=== PATIENT | male | born 1960 | race Caucasian/White ===

== ENCOUNTER 2017-08-16 13:31 | Inpatient (IN) | payer MEDICAID, OTHER ==
[~2017-08-16] VITALS: Ht 180.3 cm; Wt 100.0 kg
[2017-08-16] MEDS ORDERED: cefTRIAXone 1GM/10ml IVPUSH 10 ML IV ONE (13:45)
[2017-08-16 14:07] LABS: Basophils # (auto) 0.1 uL; Basophils % (auto) 0.4 % (0.0-2.0); Eosinophils # (auto) 0.2 uL; Eosinophils % (auto) 1.6 % (0.0-7.0); Hematocrit 37.2 % (41.0-53.0); Hemoglobin 12.6 g/dL (13.5-17.5); Lymphocytes % (auto) 8.1 % (10.0-50.0); Mean Corpuscular Hemoglobin 32.2 pg (28.0-32.0); Mean Corpuscular Hgb Conc. 33.9 g/dL (32.0-36.0); Mean Corpuscular Volume 95.1 fL (80.0-100.0); Monocytes # (auto) 1.1 uL; Monocytes % (auto) 8.6 % (0.0-12.0); Neutrophils % (auto) 81.3 % (37.0-80.0); Platelet Count (auto) 183 10^3/uL (140-450); Red Blood Cells 3.92 10^6/uL (4.5-5.90); Red Cell Distribution Width 14.6 % (11.8-14.3); White Blood Cell 12.3 10^3/uL (4.4-10.8)
[2017-08-16 14:33] LABS: INR 0.95 (0.9-1.15); Partial Thromboplastin Time 33.3 sec (23.78-33.04); Prothrombin Time 10.2 sec (9.27-12.13)
[2017-08-16 14:34] LABS: Alanine Aminotransferase 27 U/L (16-61); Albumin 2.8 g/dL (3.4-5.0); Alkaline Phosphatase 74 U/L (45-117); Anion Gap 7 (5-15); Aspartate Aminotransferase 21 U/L (15-37); BUN/Creatinine Ratio 15.5; Bilirubin, Total 0.5 mg/dL (0.2-1.0); Blood Urea Nitrogen 25 mg/dL (7-18); Calcium 7.4 mg/dL (8.5-10.1); Carbon Dioxide 32 mmol/L (21-32); Chloride 94 mmol/L (98-107); GFR African American 57 mL/min; GFR Non-African American 47 mL/min; Glucose 139 mg/dL (74-106); Potassium 3.3 mmol/L (3.5-5.1); Sodium 133 mmol/L (136-145); Total Protein 7.1 g/dL (6.4-8.2)
[2017-08-16] MEDS ORDERED: ONDANSETRON HCL 4 MG/2 ML VIAL IV PRN (15:15)
[2017-08-16] MEDS ORDERED: DEXTROSE (50%) 50ML SYRG IV PRN (15:15)
[2017-08-16] MEDS ORDERED: AZITHROMYCIN 500MG/ 250ML 250 ML IV ONE (15:15)
[2017-08-16] MEDS ORDERED: OXYCODONE W/ ACETAMINOPHEN 5/325MG TABLET PO PRN (15:15)
[2017-08-16] MEDS ORDERED: TIZANIDINE 4 MG PO PRN (15:15)
[2017-08-16 16:58] VITALS: BP 127/73
[2017-08-16] MEDS: InsuLIN REG 1unit/0.01ml Soln (100units/ml) SC SCH ×2 (17:00→22:00)
[2017-08-16] MEDS: ALBUTEROL SULF 2.5 MG/0.5ML(0.5%) NEB SOLN NEB SCH (18:25)
[2017-08-16] MEDS: BUDESONIDE (INHALATION) 0.5 MG/2 ML NEB NEB SCH (18:25)
[2017-08-16] MEDS: IPRATROPIUM BROM 0.5 MG/2.5ML INH SOL NEB SCH (18:25)
[2017-08-16] MEDS ORDERED: FUROSEMIDE 40 MG/4 ML VIAL ONE (18:45)
[2017-08-16] MEDS: ACCU-CHEK COMFORT CURVE STRIP VI SCH ×2 (19:00→22:00)
[2017-08-16] MEDS ORDERED: methylPREDNISolone SOD SUCC 125 MG/2 ML VL IV ONE ×2 (19:45→20:00)
[2017-08-16] MEDS: SOD CHL 0.9%/ KCL 20MEQ 1,000 ML IV SCH (20:19)
[2017-08-16 21:00] VITALS: BP 135/73
[2017-08-16] MEDS: GABAPENTIN 400 MG CAP PO SCH (22:00)
[2017-08-16] MEDS: MONTELUKAST SODIUM 10 MG TAB PO SCH (22:00)
[2017-08-16] MEDS: traZODone HCL 50 MG TAB PO SCH (22:00)
[2017-08-16] MEDS: methylPREDNISolone SOD SUCC 40 MG/ML VL IV SCH (22:00)
[2017-08-17] VITALS (8 sets, daily range): BP systolic 115–142; BP diastolic 68–90
[2017-08-17] MEDS: GABAPENTIN 400 MG CAP PO SCH ×3 (05:56→21:59)
[2017-08-17 06:04] LABS: Basophils # (auto) 0 uL; Basophils % (auto) 0.2 % (0.0-2.0); Eosinophils # (auto) 0.1 uL; Eosinophils % (auto) 1.2 % (0.0-7.0); Hematocrit 38.5 % (41.0-53.0); Hemoglobin 13.2 g/dL (13.5-17.5); Lymphocytes # (auto) 0.4 uL; Lymphocytes % (auto) 3.4 % (10.0-50.0); Mean Corpuscular Hemoglobin 32.8 pg (28.0-32.0); Mean Corpuscular Hgb Conc. 34.4 g/dL (32.0-36.0); Mean Corpuscular Volume 95.4 fL (80.0-100.0); Monocytes # (auto) 0.2 uL; Monocytes % (auto) 1.5 % (0.0-12.0); Neutrophils # (auto) 10.3 uL; Neutrophils % (auto) 93.7 % (37.0-80.0); Nucleated Red Blood Cells % 0.1 %; Platelet Count (auto) 185 10^3/uL (140-450); Red Blood Cells 4.03 10^6/uL (4.5-5.90); Red Cell Distribution Width 14.7 % (11.8-14.3)
[2017-08-17 06:12] LABS: BUN/Creatinine Ratio 23.6
[2017-08-17] MEDS: InsuLIN REG 1unit/0.01ml Soln (100units/ml) SC SCH ×4 (06:21→22:00)
[2017-08-17] MEDS: ACCU-CHEK COMFORT CURVE STRIP VI SCH ×4 (06:22→21:53)
[2017-08-17] MEDS: IPRATROPIUM BROM 0.5 MG/2.5ML INH SOL NEB SCH ×4 (06:30→18:34)
[2017-08-17] MEDS: ALBUTEROL SULF 2.5 MG/0.5ML(0.5%) NEB SOLN NEB SCH ×4 (06:30→18:34)
[2017-08-17] MEDS: cefTRIAXone 1GM/10ml IVPUSH 10 ML IV SCH ×2 (09:26→11:50)
[2017-08-17] MEDS: methylPREDNISolone SOD SUCC 40 MG/ML VL IV SCH ×3 (09:26→21:58)
[2017-08-17] MEDS: SOD CHL 0.9%/ KCL 20MEQ 1,000 ML IV SCH ×2 (09:26→11:54)
[2017-08-17] MEDS: AZITHROMYCIN 500MG/ 250ML 250 ML IV SCH ×2 (09:26→11:50)
[2017-08-17] MEDS: BUDESONIDE (INHALATION) 0.5 MG/2 ML NEB NEB SCH ×2 (10:16→18:34)
[2017-08-17] MEDS ORDERED: guaiFENesin 200 MG/10 ML UD PO PRN (11:00)
[2017-08-17] MEDS ORDERED: VANCOMYCIN PER PHARMACY 0 MG IV SCH (11:00)
[2017-08-17] MEDS: VANCOMYCIN 1,250 MG in D5W 5% 250 ML IV SCH (13:50)
[2017-08-17] MEDS: traZODone HCL 50 MG TAB PO SCH (21:58)
[2017-08-17] MEDS: MONTELUKAST SODIUM 10 MG TAB PO SCH (21:59)
[2017-08-17] MEDS ORDERED: VANCOMYCIN 1,250 MG in D5W 5% 250 ML IV SCH (23:00)
[2017-08-18 00:15] VITALS: BP 106/65
[2017-08-18] MEDS: VANCOMYCIN 1,250 MG in D5W 5% 250 ML IV SCH ×2 (01:28→13:00)
[2017-08-18] MEDS: ALBUTEROL SULF 2.5 MG/0.5ML(0.5%) NEB SOLN NEB SCH ×2 (05:44→10:00)
[2017-08-18] MEDS: BUDESONIDE (INHALATION) 0.5 MG/2 ML NEB NEB SCH (05:44)
[2017-08-18] MEDS: IPRATROPIUM BROM 0.5 MG/2.5ML INH SOL NEB SCH ×2 (05:44→10:00)
[2017-08-18] MEDS: GABAPENTIN 400 MG CAP PO SCH ×2 (06:56→14:00)
[2017-08-18] MEDS: InsuLIN REG 1unit/0.01ml Soln (100units/ml) SC SCH ×2 (06:57→11:29)
[2017-08-18] MEDS: ACCU-CHEK COMFORT CURVE STRIP VI SCH ×2 (06:57→11:29)
[2017-08-18] MEDS: SOD CHL 0.9%/ KCL 20MEQ 1,000 ML IV SCH (07:00)
[2017-08-18 08:00] VITALS: BP 101/60
[2017-08-18] MEDS: cefTRIAXone 1GM/10ml IVPUSH 10 ML IV SCH (08:56)
[2017-08-18] MEDS: methylPREDNISolone SOD SUCC 40 MG/ML VL IV SCH (09:39)
[2017-08-18] MEDS: AZITHROMYCIN 500MG/ 250ML 250 ML IV SCH (09:40)
== END 2017-08-18 15:30 | disposition left against medical advice (07) | DRG 720 ==
LOC: EDBD 13:31 → ER 13:39 → TELE 13:40 → WEST WING 16:49 → DOU IN ICU 20:34
PROVIDERS: ADMIT Internal Medicine; ATTEND Internal Medicine
PROC: 5A09357 Assistance with Respiratory Ventilation, Less than 24 Consecutive Hours, Continuous Positive Airway Pressure (ICD-10-PCS; principal; 2017-08-16)
DX: A41.9 Sepsis, unspecified organism (principal); J96.20 Acute and chronic respiratory failure, unspecified whether with hypoxia or hypercapnia; N17.0 Acute kidney failure with tubular necrosis; I50.43 Acute on chronic combined systolic (congestive) and diastolic (congestive) heart failure; J18.1 Lobar pneumonia, unspecified organism; I11.0 Hypertensive heart disease with heart failure; E11.42 Type 2 diabetes mellitus with diabetic polyneuropathy; E86.0 Dehydration; E11.65 Type 2 diabetes mellitus with hyperglycemia; J44.1 Chronic obstructive pulmonary disease with (acute) exacerbation; E87.1 Hypo-osmolality and hyponatremia; J44.0 Chronic obstructive pulmonary disease with (acute) lower respiratory infection; E66.9 Obesity, unspecified; G89.29 Other chronic pain; Z87.891 Personal history of nicotine dependence
CPT/HCPCS: 36415; 36600; 71046; 71250; 80048; 80053; 80202; 82805; 82962; 83036; 83605; 83880; 84484; 85025; 85610; 85730; 87040; 87070; 87081; 87205; 93306; 94640; 94660; 96374; J1815; J7060

== ENCOUNTER 2019-01-25 16:25 | Inpatient (IN) | payer MEDICAID, MEDICARE ==
[~2019-01-25] VITALS: Ht 175.3 cm; Wt 101.0 kg
[2019-01-25] MEDS ORDERED: SODIUM CHLORIDE 0.9% 1,000 ML IVB ONE (16:44)
[2019-01-25] MEDS ORDERED: LORazepam 2MG/ML-1ML VIAL IV ONE ×3 (16:45→17:30)
[2019-01-25] MEDS ORDERED: ACETAMINOPHEN 650 MG RECT SUPP PR ONE (16:45)
[2019-01-25] MEDS ORDERED: LEVOFLOXACIN 500 MG/100 ML PREMIX BAG IV ONE (16:45)
[2019-01-25] MEDS ORDERED: SODIUM CHLORIDE 0.9% 2,700 ML IV ONE (17:00)
[2019-01-25 17:28] LABS: Eosinophils # (auto) 0 uL; Monocytes # (auto) 0.9 uL; Neutrophils # (auto) 5.9 uL
[2019-01-25 17:29] LABS: Basophils # (auto) 0.1 uL; Basophils % (auto) 1.9 % (0.0-2.0); Eosinophils % (auto) 0.6 % (0.0-7.0); Hematocrit 43.8 % (41.0-53.0); Hemoglobin 15.4 g/dL (13.5-17.5); Lymphocytes # (auto) 0.7 uL; Lymphocytes % (auto) 9.4 % (10.0-50.0); Mean Corpuscular Hemoglobin 36.6 pg (28.0-32.0); Mean Corpuscular Hgb Conc. 35.1 g/dL (32.0-36.0); Mean Corpuscular Volume 104.5 fL (80.0-100.0); Monocytes % (auto) 11.6 % (0.0-12.0); Neutrophils % (auto) 76.5 % (37.0-80.0); Nucleated Red Blood Cells % 1.2 %; Platelet Count (auto) 82 10^3/uL (140-450); Red Blood Cells 4.19 10^6/uL (4.5-5.90); Red Cell Distribution Width 19.8 % (11.8-14.3); Urine Amorphous Crystal FEW /hpf (None Seen); Urine Bacteria MOD /hpf (None Seen); Urine Blood Negative /uL (Negative); Urine Mucus FEW (None Seen); Urine Specific Gravity 1.015 (1.001-1.035); Urine WBC 23 /hpf (0 - 3); White Blood Cell 7.6 10^3/uL (4.4-10.8)
[2019-01-25] MEDS ORDERED: diphenhdrAMINE HCL 50 MG/1 ML VL IM ONE (17:30)
[2019-01-25] MEDS ORDERED: HALOPERIDOL LACTATE 5 MG/ML INJ VIAL IM ONE (17:30)
[2019-01-25 17:45] LABS: Amphetamine Screen, Urine NEGATIVE (NEGATIVE); Barbiturate Scree,Urine NEGATIVE (NEGATIVE); Benzodiazephine Screen, Urine NEGATIVE (NEGATIVE); Cannabinoid Screen, Urine NEGATIVE (NEGATIVE); Cocaine Screen, Urine NEGATIVE (NEGATIVE); Opiate Scree,Urine NEGATIVE (NEGATIVE); Phencyclidine Screen, Urine NEGATIVE (NEGATIVE)
[2019-01-25 17:47] LABS: Lactic Acid w/Reflex 2.6 mmol/L (0.4-2.0)
[2019-01-25 18:05] LABS: Alanine Aminotransferase 31 U/L (16-61); Albumin 2.6 g/dL (3.4-5.0); Anion Gap 14 (5-15); Aspartate Aminotransferase 83 U/L (15-37); BUN/Creatinine Ratio 5.1; Blood Alcohol < 3.0 mg/dL (0-5); Blood Urea Nitrogen 4 mg/dL (7-18); Carbon Dioxide 32 mmol/L (21-32); Chloride 88 mmol/L (98-107); GFR African American 130 mL/min; GFR Non-African American 107 mL/min; Glucose 85 mg/dL (74-106); Sodium 134 mmol/L (136-145)
[2019-01-25 18:10] LABS: Alkaline Phosphatase 78 U/L (45-117); Bilirubin, Total 1.8 mg/dL (0.2-1.0)
[2019-01-25 18:16] LABS: Calcium 5.4 mg/dL (8.5-10.1); Magnesium 0.4 mg/dL (1.6-2.6)
[2019-01-25] MEDS ORDERED: POTASSIUM CHL 20MEQ/100ML 100 ML IV ONE (18:30)
[2019-01-25] MEDS: PROPOFOL 100 ML IV SCH (18:43)
--- NOTE | 2019-01-25 18:44 | NUR ---
Respiratory note: ASSIST DR LARES WITH INTUBATION AT THIS TIME. PT INTUBATED FOR AIRWAY PROTECTION AND HYPOXIA. PT SUCCESSFULLY INTUBATED ON FIRST 1ST ATTEMPT WITH SIZE 8.0 ETT SECURED WITH YUDELKA AT 23CM AT THE LIP. PT PREOXYGENATED WITH 100% FIO2 VIA BAGMASK. BILATERAL BS NOTED, GOOD COLOR CHANGE ON EZCAP NOTED.
[2019-01-25] MEDS ORDERED: PROPOFOL 100 ML IV ONE (18:45)
[2019-01-25] MEDS ORDERED: SUCCINYLCHOLINE CHLORIDE 20 MG/ML 10ML VIAL IV ONE ×2 (18:56→19:00)
[2019-01-25] MEDS ORDERED: ETOMIDATE (2MG/ML) 20ML VIAL IV ONE (19:00)
[2019-01-25] MEDS: MIDAZOLAM DRIP 50 mg/50mL 50 ML IV SCH (19:10)
[2019-01-25] MEDS ORDERED: MIDAZOLAM DRIP 50 mg/50mL 50 ML IV ONE ×2 (19:11→19:12)
[2019-01-25] MEDS ORDERED: PROMETHAZINE W/CODEINE 5 ML ORAL SYRUP PO PRN (19:15)
[2019-01-25] MEDS ORDERED: PROMETHAZINE W/CODEINE 5 ML ORAL SYRUP PO ONE (19:15)
[2019-01-25] MEDS ORDERED: LORazepam 2MG/ML-1ML VIAL IV PRN (19:30)
[2019-01-25] MEDS ORDERED: NITROGLYCERIN 0.4 MG SL TAB SL PRN (19:30)
[2019-01-25] MEDS ORDERED: THIAMINE 100mg/ml INJ (200mg/2ml VIAL) IV ONE (19:30)
[2019-01-25] MEDS ORDERED: PROMETHAZINE HCL 25 MG/ML 1ML IV PRN (19:30)
[2019-01-25] MEDS ORDERED: MORPHINE SULF INJ 2 MG/ML SYRINGE 1ML IV PRN (19:30)
[2019-01-25] MEDS ORDERED: VANCOMYCIN 1GM/250ML 250 ML IV ONE (19:30)
[2019-01-25] MEDS ORDERED: ALBUTEROL SULF 2.5 MG/0.5ML(0.5%) NEB SOLN NEB PRN (19:30)
[2019-01-25] MEDS ORDERED: VANCOMYCIN PER PHARMACY 0 MG IV SCH (19:30)
[2019-01-25] MEDS ORDERED: PIPERACILLIN-TAZOB 3.375GM 100 ML IV ONE (19:30)
[2019-01-25] MEDS ORDERED: CALCIUM CHL 100MG/ML 1,000 MG in D5W 5% 100 ML IV ONE (19:45)
[2019-01-25 20:06] VITALS: BP 95/61
[2019-01-25 20:11] VITALS: BP 105/62
[2019-01-25] MEDS: SODIUM CHLORIDE 0.9% 1,000 ML IV SCH (20:45)
[2019-01-25] MEDS: FOLIC ACID 1 MG, MULTIPLE VITAMIN 10 ML, MAGNESIUM SULF SDV 50% 8 MEQ, THIAMINE INJ 100... INJ SCH ×5 (21:20)
[2019-01-25] MEDS: MAGNESIUM SULFATE 1GM/100ML 100 ML IV SCH ×2 (21:24→22:35)
[2019-01-25] MEDS: FLUCONAZOLE 200MG/100ML 100 ML IV SCH ×2 (21:35→22:35)
[2019-01-25 22:07] VITALS: BP 100/63
--- NOTE | 2019-01-25 22:35 | NUR ---
Respiratory note: ADVANCED ETT 2CM TO 25CM AT THE LIP
[2019-01-26] VITALS (11 sets, daily range): BP systolic 87–110; BP diastolic 52–74
[2019-01-26] MEDS: ALBUTEROL SULF 2.5 MG/0.5ML(0.5%) NEB SOLN NEB SCH ×4 (00:18→18:00)
[2019-01-26] MEDS: IPRATROPIUM BROM 0.5 MG/2.5ML INH SOL NEB SCH ×4 (00:18→18:00)
[2019-01-26] MEDS: PIPERACILLIN-TAZOB 3.375GM 100 ML IV SCH ×3 (00:25→13:34)
[2019-01-26] MEDS: NOREPINEPHRINE 8 MG/250ML KIT 250 ML IV SCH (02:00)
[2019-01-26] MEDS ORDERED: NOREPINEPHRINE 8 MG/250ML KIT 250 ML IV ONE (02:33)
[2019-01-26] MEDS: SODIUM CHLORIDE 0.9% 1,000 ML IV SCH ×3 (04:04→20:18)
[2019-01-26] MEDS: VANCOMYCIN 1GM/250ML 250 ML IV SCH ×3 (05:30→21:28)
[2019-01-26 06:31] LABS: Basophils # (auto) 0.1 uL; Eosinophils # (auto) 0.2 uL; Lymphocytes # (auto) 1.1 uL; Mean Corpuscular Hgb Conc. 34.7 g/dL (32.0-36.0); Monocytes # (auto) 0.5 uL; Nucleated Red Blood Cells % 1.1 %
[2019-01-26 06:33] LABS: Basophils % (auto) 0.8 % (0.0-2.0); Eosinophils % (auto) 2.8 % (0.0-7.0); Hematocrit 39.6 % (41.0-53.0); Hemoglobin 13.7 g/dL (13.5-17.5); Lymphocytes % (auto) 14.4 % (10.0-50.0); Mean Corpuscular Hemoglobin 36.7 pg (28.0-32.0); Mean Corpuscular Volume 105.7 fL (80.0-100.0); Monocytes % (auto) 7.2 % (0.0-12.0); Neutrophils # (auto) 5.5 uL; Neutrophils % (auto) 74.8 % (37.0-80.0); Platelet Count (auto) 83 10^3/uL (140-450); Red Blood Cells 3.74 10^6/uL (4.5-5.90); Red Cell Distribution Width 19.9 % (11.8-14.3); White Blood Cell 7.4 10^3/uL (4.4-10.8)
[2019-01-26 06:39] LABS: Albumin 2.2 g/dL (3.4-5.0)
[2019-01-26 06:44] LABS: Bilirubin, Total 2.3 mg/dL (0.2-1.0)
[2019-01-26] MEDS ORDERED: CALCIUM CHL 100MG/ML 500 MG in D5W 5% 100 ML IV ONE (07:00)
[2019-01-26 07:05] LABS: Calcium 5.4 mg/dL (8.5-10.1); Potassium 2.3 mmol/L (3.5-5.1)
[2019-01-26] MEDS ORDERED: AZITHROMYCIN 500MG/ 250ML 250 ML IV SCH (08:00)
[2019-01-26] MEDS: POTASSIUM CHL 20MEQ/100ML 100 ML IV SCH ×3 (08:53→22:45)
[2019-01-26] MEDS: MAGNESIUM SULFATE 1GM/100ML 100 ML IV SCH ×3 (09:08→11:06)
[2019-01-26] MEDS: FAMOTIDINE (10MG/ML) 2ML VL IV SCH (10:45)
[2019-01-26] MEDS: ENOXAPARIN SOD 40 MG/0.4 ML SYRINGE SC SCH (10:46)
--- NOTE | 2019-01-26 11:15 | NUR ---
WOUND CARE NOTE: PATIENT ADMITTED TO [facility] WITH DIAGNOSIS OF ACUTE RESPIRATORY FAILURE. CURRENT TERRI SCORE IS 10. PATIENT IS INTUBATED, SEDATED IN THE ER. ORDERED SPECIALTY AIR BED AT THIS TIME PREVENTATIVE. PATIENT TO BE PLACED, PENDING DELIVERY BY CONCHITA COLON. ADDED SKIN/WOUND CARE PLAN AT THIS TIME. PATIENT IS WOUND FREE, PER BEDSIDE NURSE. RECOMMEND: FREQUENT TURN SCHEDULE Q 2 HOURS, PRN CONDITION PERMITS, WITH PRESSURE REDISTRIBUTION USING PILLOWS/WEDGES, SPECIALTY AIR MATTRESS, BID/PRN APPLICATION WITH MOISTURE BARRIER CREAM, OPTIFOAM GENTLE SACRAL DRESSING PREVENTATIVE, SKIN/WOUND CARE PLAN, DIETARY CONSULT FOR LOW TERRI, CONTINUED MONITORING BY WOUND CARE TEAM.
[2019-01-26] MEDS: THIAMINE 100mg/ml INJ (200mg/2ml VIAL) IV SCH (11:27)
[2019-01-26] MEDS ORDERED: POTASSIUM EFFERVESENT TAB 25 MEQ GT ONE (11:45)
[2019-01-26] MEDS ORDERED: FUROSEMIDE 40 MG/4 ML VIAL IV ONE (11:45)
[2019-01-26] MEDS ORDERED: cefTRIAXone 1GM/50ML D5W 50 ML IV SCH (12:06)
[2019-01-26] MEDS: FLUCONAZOLE 200MG/100ML 100 ML IV SCH ×2 (12:25→12:42)
[2019-01-26 16:39] LABS: Albumin 2.3 g/dL (3.4-5.0); Potassium 3.1 mmol/L (3.5-5.1)
[2019-01-26 16:42] LABS: BUN/Creatinine Ratio 3.2; Bilirubin, Total 1.8 mg/dL (0.2-1.0); Total Protein 5.4 g/dL (6.4-8.2)
[2019-01-26 16:46] LABS: Calcium 5.7 mg/dL (8.5-10.1)
[2019-01-26] MEDS ORDERED: CALCIUM CHL 100MG/ML 1,000 MG in D5W 5% 100 ML IV ONE (17:00)
[2019-01-26] MEDS ORDERED: MULTIPLE VITAMINS W/ MINERALS TAB PO ONE (17:00)
[2019-01-26] MEDS: PROPOFOL 100 ML IV SCH (19:06)
[2019-01-26] MEDS: MIDAZOLAM DRIP 50 mg/50mL 50 ML IV SCH (20:02)
[2019-01-26] MEDS: FOLIC ACID 1 MG, MULTIPLE VITAMIN 10 ML, MAGNESIUM SULF SDV 50% 8 MEQ, THIAMINE INJ 100... INJ SCH ×5 (21:03)
[2019-01-27] VITALS (62 sets, daily range): BP systolic 83–143; BP diastolic 52–94
[2019-01-27] MEDS ORDERED: THIAMINE 100mg/ml INJ (200mg/2ml VIAL) IV ONE
[2019-01-27] MEDS ORDERED: SODIUM BICARBONATE 8.4 % INJ 50ML VIAL IV ONE
[2019-01-27] MEDS ORDERED: SODIUM BICARBONATE 50ML VIAL 50 ML in SOD CHL 0.45% 1,000 ML IV ONE (00:45)
[2019-01-27] MEDS: POTASSIUM CHL 20MEQ/100ML 100 ML IV SCH ×3 (01:05→10:52)
[2019-01-27] MEDS: PIPERACILLIN-TAZO 4.5GM 100 ML IV SCH ×2 (01:05→07:36)
[2019-01-27] MEDS: NOREPINEPHRINE 8 MG/250ML KIT 250 ML IV SCH ×2 (02:59→10:54)
[2019-01-27] MEDS: SODIUM CHLORIDE 0.9% 1,000 ML IV SCH (03:30)
[2019-01-27] MEDS: VANCOMYCIN 1GM/250ML 250 ML IV SCH ×2 (05:03→12:57)
[2019-01-27 05:25] LABS: Basophils # (auto) 0.2 uL; Eosinophils # (auto) 0.2 uL; Hemoglobin 14.6 g/dL (13.5-17.5); Lymphocytes # (auto) 0.8 uL; Monocytes # (auto) 0.5 uL; Neutrophils # (auto) 7.1 uL; Nucleated Red Blood Cells % 0.3 %; Platelet Count (auto) 90 10^3/uL (140-450)
[2019-01-27 05:29] LABS: Basophils % (auto) 2.4 % (0.0-2.0); Eosinophils % (auto) 2.4 % (0.0-7.0); Hematocrit 42.6 % (41.0-53.0); Mean Corpuscular Hemoglobin 36.3 pg (28.0-32.0); Mean Corpuscular Hgb Conc. 34.3 g/dL (32.0-36.0); Mean Corpuscular Volume 105.8 fL (80.0-100.0); Neutrophils % (auto) 80.2 % (37.0-80.0); Red Blood Cells 4.02 10^6/uL (4.5-5.90); Red Cell Distribution Width 19.3 % (11.8-14.3); White Blood Cell 8.8 10^3/uL (4.4-10.8)
[2019-01-27 05:50] LABS: Calcium 6.6 mg/dL (8.5-10.1)
[2019-01-27 05:55] LABS: Magnesium 0.7 mg/dL (1.6-2.6)
[2019-01-27 05:56] LABS: Potassium 2.7 mmol/L (3.5-5.1)
[2019-01-27 05:58] LABS: Bilirubin, Total 1.9 mg/dL (0.2-1.0); Phosphorus 2.2 mg/dL (2.5-4.90)
[2019-01-27] MEDS ORDERED: MAGNESIUM SULFATE 1GM/100ML 100 ML IV ONE ×2 (06:00→06:30)
[2019-01-27] MEDS: ALBUTEROL SULF 2.5 MG/0.5ML(0.5%) NEB SOLN NEB SCH ×4 (06:27→18:04)
[2019-01-27] MEDS: IPRATROPIUM BROM 0.5 MG/2.5ML INH SOL NEB SCH ×4 (06:27→18:04)
[2019-01-27] MEDS ORDERED: CALCIUM GLUC 4.65meq/50ml D5AE 50 ML IV ONE (06:30)
[2019-01-27] MEDS: PROPOFOL 100 ML IV SCH ×2 (07:34→22:14)
[2019-01-27] MEDS ORDERED: VANCOMYCIN PER PHARMACY 0 MG IV SCH (08:00)
--- NOTE | 2019-01-27 08:40 | NUR ---
PATIENT ACCEPTED BY CHARGE NURSE MAURA. VSS/ SEE IV SPREADSHEET.
[2019-01-27] MEDS: ENOXAPARIN SOD 40 MG/0.4 ML SYRINGE SC SCH (10:00)
[2019-01-27] MEDS ORDERED: MAGNESIUM OXIDE 400 MG TAB PO SCH (10:00)
[2019-01-27] MEDS: FUROSEMIDE 20 MG/2 ML VIAL IV SCH (10:00)
[2019-01-27] MEDS: THIAMINE 100mg/ml INJ (200mg/2ml VIAL) IV SCH (10:52)
[2019-01-27] MEDS: FAMOTIDINE (10MG/ML) 2ML VL IV SCH (10:52)
[2019-01-27] MEDS: FLUCONAZOLE 200MG/100ML 100 ML IV SCH ×2 (10:52→12:58)
[2019-01-27] MEDS: MIDAZOLAM DRIP 50 mg/50mL 50 ML IV SCH ×2 (10:53→17:56)
--- NOTE | 2019-01-27 12:00 | NUR ---
Family updated on pt status Family of HENRY SLAUGHTER updated on patient's status and condition. All questions and concerns addressed. Sister Katty verbalized understanding.
--- NOTE | 2019-01-27 12:12 | NUR ---
EEG PENDING \TECH ATTEMPTED TO COMPLETE EEG, LARGE AMOUNT OF ARTIFACT NOTED ON MONITOR. TECH TO TRY AGAIN IN A.M. NO TREMORS OR DISTRESS NOTED TO PATIENT THAT CAN BE CAUSE. ALL LINES AND MONITORS ALLOWED WERE DISCONNECTED TO CAUSE ANY INTERFERENCE.
--- NOTE | 2019-01-27 12:14 | NUR ---
Nutrition Consult/assessment Notes: please see attached link for complete assessment Est. Needs BW 90 [id number] kcal (23-25 kcal/kgBW), 90-108 gms pro (1.0-1.2 gms/kgBW r/t severe hypoalb). Will continue to monitor pertinent labs and reassess nutrient need prn Rec: EN support with Jevity @ 60 ml/hr per MD approval Addendum: 01/27/19 at [address] Amended: Links added.
--- NOTE | 2019-01-27 12:22 | NUR ---
CARDIOLOGY AT BESIDE MD AWARE OF ELECTROLYTE IMBALANCE WITH REPLACEMENT ORDERED. SEE MD NOTES/ ORDERS.
[2019-01-27 14:08] LABS: INR 1.14 (0.9-1.15)
[2019-01-27 14:47] LABS: BUN/Creatinine Ratio 4.3; Calcium 6.5 mg/dL (8.5-10.1); Potassium 3.1 mmol/L (3.5-5.1)
--- NOTE | 2019-01-27 14:53 | NUR ---
HOSPITALIST DR. OLSON AT BEDSIDE. MD UPDATED ON PATIENTS STATUS. SEE NEW ORDERS.
[2019-01-27] MEDS ORDERED: DEXTROSE (50%) 50ML SYRG IV PRN (15:00)
[2019-01-27] MEDS ORDERED: cefTRIAXone 1GM/50ML D5W 50 ML IV ONE (15:00)
[2019-01-27] MEDS: MAGNESIUM SULFATE 1GM/100ML 100 ML IV SCH ×3 (16:15→17:56)
[2019-01-27] MEDS ORDERED: SODIUM PHOSPHATES 24 MEQ in SODIUM CHL 0.9% 100 ML IV ONE (16:15)
[2019-01-27] MEDS ORDERED: POTASSIUM CHLORIDE 80 MEQ, LIDOCAINE 1% (LOCAL ANESTH.) 6 ML in SODIUM CHL 0.9% 500 ML IV ONE (16:15)
--- NOTE | 2019-01-27 16:37 | NUR ---
RUBBER GOODS ASSEMBLER AT BEDSIDE DR. BIRD UPDATED ON PATIENTS STATUS. SEE MD ORDERS/ NOTES.
[2019-01-27] MEDS: ACCU-CHEK COMFORT CURVE STRIP VI SCH (17:55)
[2019-01-27] MEDS: InsuLIN REG 1unit/0.01ml Soln (100units/ml) SC SCH (17:56)
--- NOTE | 2019-01-27 18:21 | NUR ---
MED REC. FAMILY UNABLE TO OBTAIN MEDICATIONS. BOTTLES FOUND AROUND PATIENTS BELONGINGS APPROX 7 YEARS OLD. UNABLE TO OBTAIN LIST.
--- NOTE | 2019-01-27 19:30 | NUR ---
OPEN SHIFT RECEIVED REPORT ON FULL CODE ICU PATIENT FROM DAY SHIFT RN. PATIENT INTUBATED AND SEDATED ON PROPOFOL AND VERSED, TOLERATING VENTILATOR. NSR 70'S SBP 100'SS ON 10 . MATTA PATENT DRAINING TO GRAVITY. OGT CLAMPED, VERIFIED PLACEMENT. RECTAL PROBE IN PLACE 99.5'F. RIGHT SUBCLAVIAN TLC CLEAN DRY AND INTACT. 22G TO RIGHT UPPER ARM PATENT. 18G TO LEFT HAND, PATENT. FOR MORE INFORMATIONS SEE INTERVENTIONS. ALL FALL AND SAFETY PRECAUTIONS IN PLACE. SPECIALTY BED LOCKED AND IN LOWEST POSITION
[2019-01-27] MEDS: FOLIC ACID 1 MG, MULTIPLE VITAMIN 10 ML, MAGNESIUM SULF SDV 50% 8 MEQ, THIAMINE INJ 100... INJ SCH ×5 (21:00)
[2019-01-28] VITALS (76 sets, daily range): BP systolic 77–156; BP diastolic 50–99
--- NOTE | 2019-01-28 | NUR ---
Complete Bed Bath Given Chg bed bath given. Full linens changed. Skin reassessed and no new break down noted. VSS.
[2019-01-28] MEDS: ACCU-CHEK COMFORT CURVE STRIP VI SCH ×4 (00:05→17:28)
[2019-01-28] MEDS: IPRATROPIUM BROM 0.5 MG/2.5ML INH SOL NEB SCH ×4 (00:08→18:30)
[2019-01-28] MEDS: ALBUTEROL SULF 2.5 MG/0.5ML(0.5%) NEB SOLN NEB SCH ×4 (00:08→18:30)
[2019-01-28] MEDS: MIDAZOLAM DRIP 50 mg/50mL 50 ML IV SCH ×2 (01:26→22:52)
[2019-01-28 04:31] LABS: Basophils # (auto) 0.2 uL; Eosinophils # (auto) 0.2 uL; Lymphocytes # (auto) 0.9 uL; Monocytes # (auto) 0.6 uL
[2019-01-28 04:36] LABS: Hematocrit 42.5 % (41.0-53.0); Hemoglobin 14.6 g/dL (13.5-17.5); Lymphocytes % (auto) 10.1 % (10.0-50.0); Mean Corpuscular Hemoglobin 36.2 pg (28.0-32.0); Mean Corpuscular Hgb Conc. 34.3 g/dL (32.0-36.0); Mean Corpuscular Volume 105.6 fL (80.0-100.0); Neutrophils # (auto) 6.7 uL; Neutrophils % (auto) 78.9 % (37.0-80.0); Nucleated Red Blood Cells % 0.2 %; Platelet Count (auto) 90 10^3/uL (140-450); Red Blood Cells 4.02 10^6/uL (4.5-5.90); White Blood Cell 8.5 10^3/uL (4.4-10.8)
[2019-01-28 04:38] LABS: Red Cell Distribution Width 20.1 % (11.8-14.3)
[2019-01-28 05:14] LABS: BUN/Creatinine Ratio 6.7; Calcium 6.5 mg/dL (8.5-10.1); Magnesium 1.2 mg/dL (1.6-2.6); Potassium 3.6 mmol/L (3.5-5.1)
[2019-01-28 05:18] LABS: Albumin 1.9 g/dL (3.4-5.0); Bilirubin, Direct 0.8 mg/dL (0-0.2); Bilirubin, Total 1.4 mg/dL (0.2-1.0); Phosphorus 3.5 mg/dL (2.5-4.90); Total Protein 5.1 g/dL (6.4-8.2)
[2019-01-28] MEDS: InsuLIN REG 1unit/0.01ml Soln (100units/ml) SC SCH ×4 (06:00→17:28)
--- NOTE | 2019-01-28 07:17 | NUR ---
End of Shift Gave report to day shift RN. VSS. all fall and safety precautions in place.
--- NOTE | 2019-01-28 09:00 | NUR ---
MD AT BEDSIDE DR. OLSON UPDATED ON PATIENTS STATUS. SEE MD ORDERS/ NOTES.
--- NOTE | 2019-01-28 09:24 | NUR ---
MORTGAGE LOAN OFFICER ORIGINATOR AT BEDSIDE.
--- NOTE | 2019-01-28 09:42 | NUR ---
FISHING FLOATS ASSEMBLER DR. SOTO AT BEDSIDE. PER MD POSSIBLE LHC ON 01/29 OR 01/30 DEPENDING ON PATIENTS NEURO STATUS AND CONDITION. CONSENT TO BE OBTAINED BY FAMILY.
--- NOTE | 2019-01-28 09:45 | NUR ---
PATIENT RESPONSIVE TO DEEP PAIN, SEDATION TO BE TITRATED DOWN ONCE EEG COMPLETED TO PREVENT ANY INTERFERENCE IN TEST. Addendum: 01/28/19 at 0947 by Shira Gonzalez RN Amended: Links added.
--- NOTE | 2019-01-28 09:50 | NUR ---
EEG COMPLETED AT BEDSIDE. GERA CERDA.
[2019-01-28] MEDS: ENOXAPARIN SOD 40 MG/0.4 ML SYRINGE SC SCH (10:00)
--- NOTE | 2019-01-28 10:40 | NUR ---
LIVESTOCK NUTRITIONIST AT BEDSIDE.
--- NOTE | 2019-01-28 10:57 | NUR ---
[facility] CALLED RECOMMENDING FOR FLUCONAZOLE TO BE DISCONTINUED CULTURES ARE NOT SHOWING INDICATION AT THIS TIME. PAGED, OK TO STOP MEDICATION AT THIS TIME.
[2019-01-28] MEDS: POTASSIUM CHL 20MEQ/100ML 100 ML IV SCH ×2 (11:36→13:52)
[2019-01-28] MEDS: cefTRIAXone 1GM/50ML D5W 50 ML IV SCH (11:36)
[2019-01-28] MEDS: NOREPINEPHRINE 8 MG/250ML KIT 250 ML IV SCH (11:37)
[2019-01-28] MEDS: FAMOTIDINE (10MG/ML) 2ML VL IV SCH (11:37)
[2019-01-28] MEDS: MAGNESIUM SULFATE 1GM/100ML 100 ML IV SCH ×3 (11:38→13:52)
[2019-01-28] MEDS: THIAMINE 100mg/ml INJ (200mg/2ml VIAL) IV SCH (11:38)
[2019-01-28] MEDS: FUROSEMIDE 20 MG/2 ML VIAL IV SCH (11:38)
[2019-01-28] MEDS: PROPOFOL 100 ML IV SCH (12:05)
--- NOTE | 2019-01-28 14:46 | NUR ---
FOOD SERVICE SALES REPRESENTATIVES AT BEDSIDE DR. BIRD UPDATED ON PATIENTS STATUS. SEE NEW ORDERS/NOTES.
--- NOTE | 2019-01-28 15:34 | NUR ---
PATIENTS BP 78/ 52 WITHOUT SIGNIFICANT INCIDENCE. LEVO INCREASED PER PROTOCOL.
--- NOTE | 2019-01-28 15:35 | NUR ---
LOWER EXTREMITIES COLD TO TOUCH, PULSES PRESENT BUT WEAK TO TOUCH. PT HAS HX OF PERIPHERAL NEUROPATHY. WARM BLANKETS APPLIED TO BILATERAL LOWER EXTREMITIES. WILL CONTINUE TO MONITOR.
[2019-01-28] MEDS ORDERED: CYANOCOBALAMIN (B-12) 1000 MCG/1 ML VIAL IM ONE (15:45)
--- NOTE | 2019-01-28 16:00 | NUR ---
NEUROLOGIST AT BEDSIDE DR. REED UPDATED ON PATIENTS STATUS. PT CURRENTLY RESPONSIVE TO PAINFUL STIMULI. SEE IV SPREADSHEET. SEE MD ORDERS/ NOTES
--- NOTE | 2019-01-28 16:05 | NUR ---
Respiratory note: TITRATED FIO2 TO 30%
[2019-01-28 18:19] LABS: BUN/Creatinine Ratio 7.8; Calcium 6.9 mg/dL (8.5-10.1); Potassium 3.7 mmol/L (3.5-5.1)
[2019-01-28] MEDS ORDERED: CALCIUM CHL(10%) 100MG/ML 10ML VIAL IV ONE (18:19)
[2019-01-28] MEDS ORDERED: SODIUM BICARBONATE 8.4% INJ 50ML SYRINGE IV ONE (18:19)
[2019-01-28] MEDS ORDERED: EPINEPHrine HCL 1 MG/10 ML SYRG IV ONE (18:19)
--- NOTE | 2019-01-28 19:12 | NUR ---
REPORT GIVEN TO NOC NURSE UPDATED ON PLAN OF CARE. RN AWARE OF PENDING POSSIBLE LHC IN A.M.
--- NOTE | 2019-01-28 19:45 | NUR ---
OPEN SHIFT RECEIVED REPORT ON FULL CODE ICU PATIENT FROM DAY SHIFT RN. PATIENT INTUBATED AND SEDATED ON PROPOFOL AND VERSED, TOLERATING VENTILATOR. NSR 70'S SBP 120'SS ON 10 . MATTA PATENT DRAINING TO GRAVITY. OGT CLAMPED, VERIFIED PLACEMENT. RECTAL PROBE IN PLACE 99.0'F. RIGHT SUBCLAVIAN TLC CLEAN DRY AND INTACT. FOR MORE INFORMATIONS SEE INTERVENTIONS. ALL FALL AND SAFETY PRECAUTIONS IN PLACE. SPECIALTY BED LOCKED AND IN LOWEST POSITION.
[2019-01-28] MEDS: FOLIC ACID 1 MG, MULTIPLE VITAMIN 10 ML, MAGNESIUM SULF SDV 50% 8 MEQ, THIAMINE INJ 100... INJ SCH ×5 (21:00)
[2019-01-29] VITALS (100 sets, daily range): BP systolic 73–162; BP diastolic 41–100
[2019-01-29] MEDS: ACCU-CHEK COMFORT CURVE STRIP VI SCH ×4 (00:08→18:00)
[2019-01-29] MEDS: PROPOFOL 100 ML IV SCH ×2 (00:21→12:27)
[2019-01-29] MEDS: IPRATROPIUM BROM 0.5 MG/2.5ML INH SOL NEB SCH ×4 (00:34→17:54)
[2019-01-29] MEDS: ALBUTEROL SULF 2.5 MG/0.5ML(0.5%) NEB SOLN NEB SCH ×4 (00:34→17:54)
--- NOTE | 2019-01-29 01:11 | NUR ---
Complete Bed Bath Given Chg cleaning to Left radial and left groin for left PTCA in am. Soap and water bed bath given. Full linens changed. Skin reassessed and no new break down noted. VSS.
[2019-01-29 04:08] LABS: Basophils # (auto) 0.3 uL; Basophils % (auto) 3.7 % (0.0-2.0); Eosinophils # (auto) 0.2 uL; Eosinophils % (auto) 2.1 % (0.0-7.0); Hematocrit 44.7 % (41.0-53.0); Hemoglobin 15.6 g/dL (13.5-17.5); Lymphocytes # (auto) 0.9 uL; Lymphocytes % (auto) 11.2 % (10.0-50.0); Mean Corpuscular Hemoglobin 36.6 pg (28.0-32.0); Mean Corpuscular Volume 104.6 fL (80.0-100.0); Monocytes # (auto) 0.8 uL; Monocytes % (auto) 10.4 % (0.0-12.0); Neutrophils # (auto) 5.5 uL; Neutrophils % (auto) 72.6 % (37.0-80.0); Nucleated Red Blood Cells % 0.1 %; Platelet Count (auto) 113 10^3/uL (140-450); Red Blood Cells 4.28 10^6/uL (4.5-5.90); Red Cell Distribution Width 19.6 % (11.8-14.3); White Blood Cell 7.6 10^3/uL (4.4-10.8)
[2019-01-29 04:21] LABS: INR 1.04 (0.9-1.15); Partial Thromboplastin Time 31.6 sec (23.64-32.05)
[2019-01-29 04:28] LABS: Potassium 3.4 mmol/L (3.5-5.1)
[2019-01-29] MEDS: InsuLIN REG 1unit/0.01ml Soln (100units/ml) SC SCH ×4 (06:00→18:00)
--- NOTE | 2019-01-29 07:28 | NUR ---
End of Shift Gave report to day shift RN. VSS. all fall and safety precautions in place.
--- NOTE | 2019-01-29 08:45 | NUR ---
LEVOPHED GTT Levophed gtt decreased to 11mcg for a blood pressure of 141/91, will continue to titrate gtt as tolerated by patient.
[2019-01-29] MEDS: cefTRIAXone 1GM/50ML D5W 50 ML IV SCH (09:12)
[2019-01-29] MEDS: ENOXAPARIN SOD 40 MG/0.4 ML SYRINGE SC SCH (09:58)
[2019-01-29] MEDS: FUROSEMIDE 20 MG/2 ML VIAL IV SCH (09:59)
[2019-01-29] MEDS: FAMOTIDINE (10MG/ML) 2ML VL IV SCH (10:03)
[2019-01-29] MEDS: THIAMINE 100mg/ml INJ (200mg/2ml VIAL) IV SCH (10:03)
--- NOTE | 2019-01-29 10:30 | NUR ---
LEVOPHED GTT Levophed gtt decreased to 10mcg for a blood pressure of 151/98, will continue to titrate as tolerated by patient.
--- NOTE | 2019-01-29 10:34 | NUR ---
MD Dr. Hayes paged for a potassium of 3.4, awaiting for MD to call back.
--- NOTE | 2019-01-29 10:38 | NUR ---
MD Dr. Hayes called back and received new orders regarding potassium of 3.4, will carry out orders.
--- NOTE | 2019-01-29 10:45 | NUR ---
MD Dr. Radford at bedside updated on patient condition with no new orders received. Will continue to monitor patient closely.
[2019-01-29] MEDS: POTASSIUM CHL 20MEQ/100ML 100 ML IV SCH ×2 (11:03→13:00)
[2019-01-29] MEDS ORDERED: LIDOCAINE 2%HCL (LOCAL ANESTH.) INJ 20ML MDV ONE (11:20)
--- NOTE | 2019-01-29 11:30 | NUR ---
STEEL RULE DIE MAKER Patient was taken to rn lab by STEEL RULE DIE MAKERdirector of vocational guidance and another RN, Rachel BOSS. Patient connected to portable injection molding machine tender and oxygen. Awaiting for patient to arrive back to room 101.
--- NOTE | 2019-01-29 11:35 | NUR ---
Nutrition Follow-up Notes Wt.: 106.0 kg today. Pt's intubated, no immediate family member at bedside during rounds earlier. Pt's currently sedated with Propofol @ 5.443 ml/hr providing 144 kcal from Fat. Pt remains NPO, no order for alternate nutrition support yet at this time, per nursing. Noted pt's for active Wound, Pulmonary, Nephrology and Cardiology consults. Est. Needs BW 90 [id number] kcal (23-25 kcal/kgBW), 90-108 gms pro (1.0-1.2 gms/kgBW r/t severe hypoalb). Will continue to monitor pertinent labs and reassess nutrient need prn Labs: Gluc 122 H, K 3.4 L, BUN 5 L, Cr 0.50 L, Ca 7.0 L; Tpro 5.1 Alb 1.9 L. Skin: Raul scale 12, high risk, pt's right knee abrasion per supervisor dials. GI: Pt's no bowel activity since 01/25/19 per supervisor dials. PES: Increased nutrient needs r/t acute/chronic medical condition aeb intubated sedated with order of NPO Altered nutrition related lab values r/t current/chronic medical condition aeb hyperglycemia, severe hypoalb, hypocalcemia Obesity r/t food intake more than body requirement aeb 146% IBW, BMI 34.5 kg/m2 and increased body adiposity Will continue to monitor NPO status, skin status, pertinent labs and weight trend. F/u in 2 to 3 days. Rec.: 1.) If still NPO in next 36 hrs, consider EN support with formula choice of Glucerna 1.2 Ha @ 70 ml/hr goal rate as tolerated if medically appropriate. 2.) If Albumin continues trending down, consider Prostat 1 pkt BID. 3.) Consider daily MVI with minerals and Asc acid 500 mgs BID prn. 4.) Refer pt to RD for further nutrition education and weight monitoring upon discharge. 5.) Continue current plan of care.
[2019-01-29] MEDS ORDERED: ANGIOMAX 250 MG VIAL IV ONE (11:47)
[2019-01-29] MEDS ORDERED: SODIUM CHL 0.9% 0 ML ONE (11:47)
--- NOTE | 2019-01-29 12:05 | NUR ---
REPORT Report received from Avel BOSS in medical laboratory technical officer, awaiting for patient to arrive into room 101.
--- NOTE | 2019-01-29 12:17 | NUR ---
ARRIVAL Patient arrived back to room 101 from rags laborer accompanied by Avel BOSS and RT Browne. Patient tolerated procedure well. Right groin soft, non tender with no hematoma observed. Dressing dry clean and intact. Pulses palpable on upper and lower extremities. Will continue to monitor patient closely.
--- NOTE | 2019-01-29 12:17 | NUR ---
RT Transport Note: 1135: Patient transported to cardiac catheterization technician with OR team. Transported to procedure on registered nurse cardiac telemetry with alarms set and audible, ambu-bag/mask connected to O2 tank. In cardiac catheterization technician, placed on vent on previously ordered settings for procedure. 1217: Patient returned to room with no adverse reaction noted. Placed back on ventilator on previously ordered settings. Transport completed without incident.
[2019-01-29] MEDS: MIDAZOLAM DRIP 50 mg/50mL 50 ML IV SCH (12:28)
--- NOTE | 2019-01-29 14:05 | NUR ---
MD Dr. Hayes at bedside updated on patient condition with no new orders received. Will continue to monitor patient closely.
--- NOTE | 2019-01-29 14:35 | NUR ---
MD Dr. Radford called on cell phone [phone] with no responds will attempt again.
--- NOTE | 2019-01-29 14:36 | NUR ---
Assessment and SS consult Pt is a 58 yr old intubated male. SW called pt's sister, Waleska, who was a maintenance person listed for him. SS conslt given because pt is alcoholic and lives in a motor home or in a tent on sister's property and it is not suitable living conditions. In phone conversation, Pt's sister stated that prior to admit, pt was living with her in her home for 3 yrs and was "barely functioning". Pt could walk a little, wore the same clothes for a month and would get drink alcohol "24/" daily. Pt has anger issues and is very combative, especially whenever family members address his drinking issues or needing to move out. Pt owns a w/c and leg braces that he uses occasionally. Pt's sister stated that the pt has never received tx or even been open to the idea of tx for substance abuse or mental health. Pt has been "looking" for new housing for 3 yrs with out any success. Waleska stated that pt gets almost $2000 income monthly. SW stated that they could provide the pt with board and care/ room and board information along with mental health/ substance abuse tx, once the patient is alert and oriented again, and pt would have to decide to utilize the resources. Pt's sister made it very clear that the pt can no longer live in her home anymore after getting out of the hospital. Waleska stated that her sister, Katty, is the patients POA and can be reached by cell at [phone] or at her house at [phone]. Further needs will be assessed closer to d/c. Addendum: 01/29/19 at 1635 by CHEN MOISE Amended: Links added.
--- NOTE | 2019-01-29 14:45 | NUR ---
Called and spoke to Dr. Radford regarding label drier procedure with new orders received, this RN to input into system. Will carry out orders.
--- NOTE | 2019-01-29 14:59 | NUR ---
FAMILY Received phone call from patient sister, correct password given and update given to sister.
--- NOTE | 2019-01-29 17:20 | NUR ---
LINEN CHANGE Complete linen change done, patient tolerated well.
--- NOTE | 2019-01-29 19:15 | NUR ---
OPEN SHIFT RECEIVED REPORT ON FULL CODE ICU PATIENT FROM DAY SHIFT RN. PATIENT INTUBATED AND SEDATED ON PROPOFOL AND VERSED, TOLERATING VENTILATOR. NSR 60'S SBP 130'S ON 8 . MATTA PATENT DRAINING TO GRAVITY. OGT CLAMPED, VERIFIED PLACEMENT. RECTAL PROBE IN PLACE 99.5'F. RIGHT SUBCLAVIAN TLC CLEAN DRY AND INTACT. FOR MORE INFORMATIONS SEE INTERVENTIONS. ALL FALL AND SAFETY PRECAUTIONS IN PLACE. SPECIALTY BED LOCKED AND IN LOWEST POSITION.
[2019-01-29 19:49] LABS: Phosphorus 3.4 mg/dL (2.5-4.90); Potassium 4.1 mmol/L (3.5-5.1)
[2019-01-29 19:59] LABS: Magnesium 0.9 mg/dL (1.6-2.6)
--- NOTE | 2019-01-29 20:03 | NUR ---
RECEIVED CRITICAL LAB VALUE MAG 0.9 PAGED HOSPITALIST. AWAITING CALL BACK.
--- NOTE | 2019-01-29 20:36 | NUR ---
RECEIVED CALL BACK FROM HOSPITALIST UPDATED ON PATIENT STATUS, NEW ORDERS FOR 2GM MAG RIDER AND AM MAG LAB CHECK RECEIVED.
[2019-01-29] MEDS: FOLIC ACID 1 MG, MULTIPLE VITAMIN 10 ML, MAGNESIUM SULF SDV 50% 8 MEQ, THIAMINE INJ 100... INJ SCH ×5 (20:40)
[2019-01-29] MEDS: MAGNESIUM SULFATE 1GM/100ML 100 ML IV SCH ×2 (20:52→22:30)
[2019-01-30] VITALS (103 sets, daily range): BP systolic 84–152; BP diastolic 49–96
[2019-01-30] MEDS: IPRATROPIUM BROM 0.5 MG/2.5ML INH SOL NEB SCH ×4 (00:01→18:05)
[2019-01-30] MEDS: ALBUTEROL SULF 2.5 MG/0.5ML(0.5%) NEB SOLN NEB SCH ×4 (00:01→18:05)
[2019-01-30] MEDS: ACCU-CHEK COMFORT CURVE STRIP VI SCH ×4 (00:07→16:58)
[2019-01-30] MEDS: MIDAZOLAM DRIP 50 mg/50mL 50 ML IV SCH (00:34)
[2019-01-30] MEDS: NOREPINEPHRINE 8 MG/250ML KIT 250 ML IV SCH (00:34)
[2019-01-30 04:27] LABS: Calcium 7.3 mg/dL (8.5-10.1); Magnesium 1.5 mg/dL (1.6-2.6); Potassium 3.5 mmol/L (3.5-5.1)
[2019-01-30 04:30] LABS: BUN/Creatinine Ratio 10.9
[2019-01-30] MEDS: InsuLIN REG 1unit/0.01ml Soln (100units/ml) SC SCH ×4 (05:59→16:58)
[2019-01-30] MEDS ORDERED: MAGNESIUM SULFATE 1GM/100ML 100 ML IV ONE (07:43)
--- NOTE | 2019-01-30 07:45 | NUR ---
MD SOTO AT BEDSIDE. UPDATED MD WITH PT OVERALL STATUS INCLUDING ABNORMAL LAB VALUES. NEW ORDERS GIVEN AND IMPLEMENTED, VSS.
[2019-01-30] MEDS: MAGNESIUM SULFATE 1GM/100ML 100 ML IV SCH ×2 (08:00→09:13)
--- NOTE | 2019-01-30 08:00 | NUR ---
SBAR REPORT RECEIVED FROM BRAIN NOC SHIFT RN. AM ASSESSMENT PERFORMED AT THIS TIME WITH 0 COMPLICATIONS NOTED. SEE FLOWSHEET FOR MORE DETAILS. VSS. PT HAS ORDERS FOR CPAP TRIAL TODAY, PT ABLE TO FOLLOW COMMANDS AT THIS TIME HOWEVER PT IS EXTREMELY LETHARGIC. WILL MONITOR PROGRESS THROUGHOUT THE DAY AND START CPAP TRIAL WHEN PT IS READY.
--- NOTE | 2019-01-30 08:05 | NUR ---
MD REED AT BEDSIDE. UPDATED MD WITH PT'S OVERALL STATUS. NO NEW ORDERS AT THIS TME, VSS.
[2019-01-30] MEDS: ENOXAPARIN SOD 40 MG/0.4 ML SYRINGE SC SCH (09:13)
[2019-01-30] MEDS: cefTRIAXone 1GM/50ML D5W 50 ML IV SCH (09:13)
[2019-01-30] MEDS: FUROSEMIDE 20 MG/2 ML VIAL IV SCH (09:14)
[2019-01-30] MEDS: FAMOTIDINE (10MG/ML) 2ML VL IV SCH (09:14)
[2019-01-30] MEDS: THIAMINE 100mg/ml INJ (200mg/2ml VIAL) IV SCH (09:14)
--- NOTE | 2019-01-30 10:30 | NUR ---
MD COMER AT BEDSIDE. UPDATED MD ON PT OVERALL STATUS INCLUDING ABNORMAL LAB VALUES. NEW ORDERS GIVEN AND IMPLEMENTED, MD WANTS PT TO NOT RECEIVE HIGH RATES OF FLUIDS DUE TO LOW EJECTION FRACTION. VSS.
--- NOTE | 2019-01-30 11:35 | NUR ---
PT PLACED ON CPAP AT THIS TIME PS8, PEEP5, 30% FIO2. PT AWAKE AND FOLLOWS COMMANDS. RN AT BEDSIDE AWARE OF CPAP TRIAL INITIATION.
--- NOTE | 2019-01-30 11:35 | NUR ---
PT HAS ORDERS FOR CPAP TRIAL. PT PLACED ON CPAP AT THIS TIME PER MD ORDERS. PT ABLE TO FOLLOW ALL SIMPLE COMMANDS AND APPEARS MORE AWAKE AT THIS TIME. WILL CONTINUE TO MONITOR WHILE ON CPAP. PT TOLERATING MODE AT THIS TIME. VSS.
--- NOTE | 2019-01-30 11:59 | NUR ---
CPAP TRIAL STOPPED AT THIS TIME DUE TO APNEA ALARM ON VENTILATOR. PT APPEARS DROWSY. PT SWITCHED BACK TO AC MODE ON PREVIOUS SETTINGS OF AC RR 16, VT550, PEEP8
--- NOTE | 2019-01-30 12:04 | NUR ---
PT PLACED BACK ON PREVIOUS VENT SETTINGS AT THIS TIME DUE TO EPISODES OF APNEA (PT IS AWAKE AND ABLE TO FOLLOW COMMANDS BUT, PT FALLS ASLEEP TOO FAST). WILL TRY AGAIN ONCE PT IS MORE AWAKE, VSS. SEDATION CONTINUES TO BE OFF PER MD ORDERS.
--- NOTE | 2019-01-30 12:59 | NUR ---
MD BIRD AT BEDSIDE. UPDATED MD ON PT OVERALL STATUS INCLUDING FAILED CPAP TRIAL. OK WITH ANOTHER ATTEMPT AT CPAP LATER IN THE DAY WHEN PT IS MORE AWAKE. VSS.
[2019-01-30] MEDS: ACETAMINOPHEN 325 MG TAB PO PRN (14:14)
--- NOTE | 2019-01-30 14:23 | NUR ---
PT'S TEMP SLOWLY ELEVATING DESPITE COOLING MEASURES. ADMINISTERED TYLENOL PER MD ORDERS AT THIS TIME TO PREVENT ONCOMING FEVER. CURRENT TEMP IS 100.0, VSS.
[2019-01-30] MEDS ORDERED: POTASSIUM EFFERVESENT TAB 25 MEQ GT ONE (17:45)
[2019-01-30] MEDS ORDERED: FUROSEMIDE 20 MG/2 ML VIAL IV ONE (17:45)
[2019-01-30] MEDS: fentaNYL Drip 2500mCg/250mlNS 250 ML IV SCH (18:12)
[2019-01-30] MEDS ORDERED: MIDAZOLAM HCL 1MG/1ML-2 ML VIAL IV PRN (18:15)
[2019-01-30] MEDS: PROPOFOL 100 ML IV SCH (18:42)
--- NOTE | 2019-01-30 19:30 | NUR ---
Opening Shift Note Received report from day shift RN. Received pt on mechanical ventilator not on any sedation. Pt opens eyes to voice and able to follow commands. Pending C/PAP trial in AM. Minimal extremity activity seen. Pt has bilateral mittens on for safety. Right subclavian tlc. All ports patent with good blood return. Levophed gtt infusing at 3 mcg/hr. Pt has copious amounts of clear oral secretions. Creamy, thick secretions suctioned endotracheally. Full assessment done see interventions. All alarms on and audible. Bed rails up x4. Pt in full view of RN. Pt shakes head "no" when asked if in any pain. Will continue to monitor closely.
[2019-01-31] VITALS (104 sets, daily range): BP systolic 78–143; BP diastolic 46–91
[2019-01-31] MEDS: ALBUTEROL SULF 2.5 MG/0.5ML(0.5%) NEB SOLN NEB SCH ×4 (00:05→17:55)
[2019-01-31] MEDS: IPRATROPIUM BROM 0.5 MG/2.5ML INH SOL NEB SCH ×4 (00:05→17:55)
[2019-01-31] MEDS: ACCU-CHEK COMFORT CURVE STRIP VI SCH ×4 (00:21→17:37)
[2019-01-31 04:00] LABS: Basophils # (auto) 0 uL; Basophils % (auto) 0.8 % (0.0-2.0); Eosinophils # (auto) 0.2 uL; Eosinophils % (auto) 3.8 % (0.0-7.0); Hematocrit 40.9 % (41.0-53.0); Hemoglobin 14.1 g/dL (13.5-17.5); Lymphocytes # (auto) 0.8 uL; Mean Corpuscular Hemoglobin 36.4 pg (28.0-32.0); Mean Corpuscular Hgb Conc. 34.4 g/dL (32.0-36.0); Mean Corpuscular Volume 105.8 fL (80.0-100.0); Monocytes # (auto) 0.9 uL; Monocytes % (auto) 16.3 % (0.0-12.0); Neutrophils # (auto) 3.6 uL; Neutrophils % (auto) 65.1 % (37.0-80.0); Nucleated Red Blood Cells % 0.1 %; Platelet Count (auto) 124 10^3/uL (140-450); Red Blood Cells 3.87 10^6/uL (4.5-5.90); Red Cell Distribution Width 19.7 % (11.8-14.3); White Blood Cell 5.5 10^3/uL (4.4-10.8)
--- NOTE | 2019-01-31 04:07 | NUR ---
CARES LINEN CHANGE PERFORMED AT THIS TIME PT TOLERATED WELL. SKIN ASSESSMENT DONE; NO CHANGES SEEN. PT TOLERATED WELL. ORAL CARE RENDERED.
[2019-01-31 04:19] LABS: Calcium 7.8 mg/dL (8.5-10.1); Magnesium 1.1 mg/dL (1.6-2.6); Potassium 3.7 mmol/L (3.5-5.1)
[2019-01-31 04:24] LABS: Bilirubin, Total 1.1 mg/dL (0.2-1.0); Phosphorus 3.2 mg/dL (2.5-4.90); Total Protein 5.4 g/dL (6.4-8.2)
--- NOTE | 2019-01-31 04:30 | NUR ---
LEVOPHED GTT TITRATED OFF AT THIS TIME. WILL CONTINUE TO MONITOR BLOOD PRESSURE CLOSELY
[2019-01-31] MEDS: InsuLIN REG 1unit/0.01ml Soln (100units/ml) SC SCH ×4 (05:52→17:37)
--- NOTE | 2019-01-31 07:23 | NUR ---
REPORT GIVEN TO GERA LEONG TO ASSUME CARE.
--- NOTE | 2019-01-31 07:28 | NUR ---
SHIFT OPENING NOTE REPORT RECEIVED FROM WAREHOUSE CHECKER RN. PATIENT ON NO SEDATION OR VASOPRESSORS AT THIS TIME. PATIENT ON MECHANICAL VENTILATOR, LUNG SOUNDS CLEAR THROUGHOUT, WITH LARGE AMOUNTS OF CLEAR ORAL SECRETIONS. ABDOMEN, ROUND SOFT AND NONTENDER, OGT CLAMPED AT THIS TIME. MATTA DRAINING CLEAR YELLOW URINE, SCD'S BILATERALLY TO LOWER EXTREMITIES. SKIN INTEGRITY SEE INTERVENTION.
--- NOTE | 2019-01-31 08:38 | NUR ---
Respiratory note: PT AWAKE AND FOLLOWING SIMPLE COMMANDS. PLACED PT ON CPAP PER DR BIRD'S ORDERS. PT TOLERATING WELL WITH NO ACUTE CHANGES IN VITALS. ATTEMPTED WEANING PARAMETERS: NIF -13, VC 718 ML. RSBI 39. NOTIFIED RN JOSE MARIA OF CHANGES. WILL CONTINUE TO MONITOR.
[2019-01-31] MEDS ORDERED: DexMEDEtomidine 400 MCG in D5W 5% 96 ML IV SCH (08:53)
[2019-01-31] MEDS: cefTRIAXone 1GM/50ML D5W 50 ML IV SCH (09:33)
[2019-01-31] MEDS: FAMOTIDINE (10MG/ML) 2ML VL IV SCH (09:33)
[2019-01-31] MEDS: ENOXAPARIN SOD 40 MG/0.4 ML SYRINGE SC SCH (09:33)
[2019-01-31] MEDS: THIAMINE 100mg/ml INJ (200mg/2ml VIAL) IV SCH (09:33)
[2019-01-31] MEDS: FUROSEMIDE 20 MG/2 ML VIAL IV SCH (09:34)
--- NOTE | 2019-01-31 09:47 | NUR ---
DR. COMER AT BEDSIDE
[2019-01-31] MEDS ORDERED: FUROSEMIDE 20 MG/2 ML VIAL IV SCH (10:00)
[2019-01-31] MEDS: MAGNESIUM SULFATE 1GM/100ML 100 ML IV SCH ×2 (10:22→11:19)
[2019-01-31] MEDS: D5W/SOD CHLO 0.9% 1,000 ML IV SCH (10:23)
--- NOTE | 2019-01-31 11:13 | NUR ---
Nutrition Follow-up Notes Wt.: 100.0 kg today. Noted 6.0 kg weight loss in last 2 days likely d/t ? fluid loss aeb on Lasix with negative I & Os for past few days. Pt's intubated, non-sedated, bilateral mittens in place, no immediate family member at bedside when rounded earlier. Pt's s/p Coronary angiogram (12/29/18), remains NPO, no order for alternate nutrition support yet at this time, for possible CPAP trial, per nursing. Est. Needs BW 90 [id number] kcal (23-25 kcal/kgBW), 90-108 gms pro (1.0-1.2 gms/kgBW r/t severe hypoalb). Will continue to monitor pertinent labs and reassess nutrient need prn Labs: BUN 6 L, Cr 0.60 L, Ca 7.8 L, Mg 1.1 L, Tot nagi 1.1 H, Dir nagi 1.1 H, Tpro 5.4 Alb 2.0 L. Skin: Raul scale 12, high risk, pt's right knee abrasion per corporate law assistant. GI: Pt's no bowel activity since 01/25/19 per corporate law assistant. PES: Increased nutrient needs r/t acute/chronic medical condition aeb intubated sedated with order of NPO Altered nutrition related lab values r/t current/chronic medical condition aeb hyperglycemia, severe hypoalb, hypocalcemia Obesity r/t food intake more than body requirement aeb 146% IBW, BMI 34.5 kg/m2 and increased body adiposity Will continue to monitor NPO status, skin status, pertinent labs and weight trend. F/u in 2 to 3 days. Rec.: 1.) Advance gradually to oral diet (Consistent Standard Carb: 60 gms/meal, Cardiac: 2 gms Na, Low Chol, Low Fat diet) when medically appropriate. 2.) If Albumin continues trending down, consider Prostat 1 pkt BID. 3.) Consider daily MVI with minerals and Asc acid 500 mgs BID prn. 4.) If still NPO, consider EN support with formula choice of Glucerna 1.2 Ha @ 70 ml/hr goal rate as tolerated if medically appropriate. 5.) Refer pt to CDE/RD for further nutrition education and weight monitoring upon discharge. 6.) Continue current plan of care.
--- NOTE | 2019-01-31 12:08 | NUR ---
DR. SOTO AT BEDSIDE
--- NOTE | 2019-01-31 13:50 | NUR ---
FAMILY SISTER AND NEPHEW AT BEDSIDE. UPDATED ON PATIENT STATUS. ALL QUESTIONS AND CONCERNS ADDRESSED AT THIS TIME
[2019-01-31] MEDS: NOREPINEPHRINE 8 MG/250ML KIT 250 ML IV SCH (14:27)
--- NOTE | 2019-01-31 15:57 | NUR ---
COMPLETE LINEN CHANGE PERFORMED AT THIS TIME
[2019-01-31] MEDS ORDERED: Glucerna 1.2 Cal 1Liter BOTTLE GT SCH (16:30)
--- NOTE | 2019-01-31 17:55 | NUR ---
Respiratory note: RECEIVED PT ON VENT V2, VENT CONNECTED TO RED OUTLET AND O2 SOURCE. ALARMS ARE SET AND AUDIBLE. AMBU BAG AND MASK AT BEDSIDE. BS ARE DIMINISHED T/O, SXD FOR SCANT THIN CLEAR. MED NEB TX GIVEN INLINE WITHOUT ADVERSE REACTION NOTED WILL CONTINUE TO MONITOR Q2H. PT AWAKE, CALM AND FOLLOWING COMMANDS. PTS CURRENT TEMP IS 99.5F.
[2019-01-31] MEDS: fentaNYL Drip 2500mCg/250mlNS 250 ML IV SCH (18:12)
[2019-01-31] MEDS: PROPOFOL 100 ML IV SCH (18:54)
--- NOTE | 2019-01-31 20:04 | NUR ---
Respiratory note: AT BEDSIDE FOR ROUTINE VENT CHECK NO CHANGES MADE AT THIS TIME. PTS CURRENT TEMP IS 99.5F. WILL CONTINUE TO MONITOR Q2H VENT CHECK AND NEEDED.
--- NOTE | 2019-01-31 22:09 | NUR ---
Respiratory note: AT BEDSIDE FOR ROUTINE VENT CHECK NO CHANGES MADE AT THIS TIME. BS ARE DIMINISHED T/O NO SX DONE AT THIS TIME. PTS CURRENT TEMP IS 99.3F. WILL CONTINUE TO MONITOR Q2H VENT CHECK AND NEEDED.
--- NOTE | 2019-01-31 23:30 | NUR ---
PT BREATHING OVER VENTILATOR AND LOOKING AROUND ANXIOUSLY; PRECEDEX STARTED AT .1MCG/KG/HR AT THIS TIME.
[2019-02-01] VITALS (51 sets, daily range): BP systolic 82–169; BP diastolic 53–99
--- NOTE | 2019-02-01 | NUR ---
Respiratory note: AT BEDSIDE FOR ROUTINE VENT CHECK NO VENT CHANGES MADE AT THIS TIME. BS ARE COURSE T/O, SXD SMALL THICK VARELA. MED NEB TX GIVEN INLINE WITHOUT ADVERSE REACTION NOTED. PTS CURRENT TEMP IS 99.5F. WILL CONTINUE TO MONITOR Q2H VENT CHECK AND NEEDED.
--- NOTE | 2019-02-01 | NUR ---
RESIDUALS TF RESIDUALS OF 40 MLS ASPIRATED, WILL HOLD TF FOR NOW. POSSIBLE C/PAP IN AM.
--- NOTE | 2019-02-01 02:00 | NUR ---
PT ABLE TO FOLLOW COMMANDS AND AWAKENS EASILY.
[2019-02-01] MEDS: NOREPINEPHRINE 8 MG/250ML KIT 250 ML IV SCH (02:43)
--- NOTE | 2019-02-01 04:03 | NUR ---
Respiratory note: AT BEDSIDE FOR END OF SHIFT VENT CHECK. PTS CURRENT TEMP IS 98.8F. NO VENT CHANGE MADE AT THIS TIME. WILL HAVE DAY SHIFT CONTINUE POC.
[2019-02-01 04:04] LABS: Eosinophils # (auto) 0.2 uL; Lymphocytes # (auto) 0.9 uL
[2019-02-01 04:06] LABS: Basophils # (auto) 0.1 uL; Eosinophils % (auto) 4.1 % (0.0-7.0); Hematocrit 38.4 % (41.0-53.0); Hemoglobin 13.3 g/dL (13.5-17.5); Lymphocytes % (auto) 15.2 % (10.0-50.0); Mean Corpuscular Hemoglobin 36.5 pg (28.0-32.0); Mean Corpuscular Hgb Conc. 34.5 g/dL (32.0-36.0); Mean Corpuscular Volume 105.9 fL (80.0-100.0); Monocytes # (auto) 1.1 uL; Monocytes % (auto) 18.6 % (0.0-12.0); Neutrophils # (auto) 3.5 uL; Neutrophils % (auto) 60.1 % (37.0-80.0); Nucleated Red Blood Cells % 0.2 %; Platelet Count (auto) 184 10^3/uL (140-450); Red Blood Cells 3.63 10^6/uL (4.5-5.90); White Blood Cell 5.8 10^3/uL (4.4-10.8)
[2019-02-01 04:25] LABS: Magnesium 1.1 mg/dL (1.6-2.6); Potassium 3.2 mmol/L (3.5-5.1)
[2019-02-01 04:28] LABS: BUN/Creatinine Ratio 12.5; Phosphorus 3.5 mg/dL (2.5-4.90)
[2019-02-01] MEDS: InsuLIN REG 1unit/0.01ml Soln (100units/ml) SC SCH ×5 (06:00→23:53)
[2019-02-01] MEDS: ACCU-CHEK COMFORT CURVE STRIP VI SCH ×5 (06:03→23:53)
[2019-02-01] MEDS: ALBUTEROL SULF 2.5 MG/0.5ML(0.5%) NEB SOLN NEB SCH ×4 (06:22→19:28)
[2019-02-01] MEDS: IPRATROPIUM BROM 0.5 MG/2.5ML INH SOL NEB SCH ×4 (06:22→19:28)
--- NOTE | 2019-02-01 07:51 | NUR ---
DR. REED AT BEDSIDE
--- NOTE | 2019-02-01 08:31 | NUR ---
DR. COMER PAGED AWAITING CALLBACK
--- NOTE | 2019-02-01 08:39 | NUR ---
DR. SOULEYMANE SKINNER UPDATED ON PATINET STATUS. ORDERS RECEIVED FOR MAGNESIUM, POTASSIUM, AND TO HOLD TODAYS DOSE OF LASIX.
[2019-02-01] MEDS: cefTRIAXone 1GM/50ML D5W 50 ML IV SCH (08:41)
[2019-02-01] MEDS: POTASSIUM CHL 20MEQ/100ML 100 ML IV SCH ×2 (08:48→10:47)
[2019-02-01] MEDS: FUROSEMIDE 20 MG/2 ML VIAL IV SCH (09:02)
--- NOTE | 2019-02-01 09:15 | NUR ---
WEANING PARAMETERS AND ABG RESULTS REPORTED TO DR. BIRD. T.O. RECEIVED TO EXTUBATE PT. AND PLACE ON COOL AEROSOL TO KEEP SATS >92%., BIPAP 14/6 WITH BR 12 PRN, RACEMICEPINEPHRINE PRN X2 FOR STRIDOR.
[2019-02-01] MEDS: FAMOTIDINE (10MG/ML) 2ML VL IV SCH (09:17)
[2019-02-01] MEDS: MAGNESIUM SULFATE 1GM/100ML 100 ML IV SCH ×3 (09:17→11:11)
[2019-02-01] MEDS: THIAMINE 100mg/ml INJ (200mg/2ml VIAL) IV SCH (09:17)
[2019-02-01] MEDS: ENOXAPARIN SOD 40 MG/0.4 ML SYRINGE SC SCH (09:18)
--- NOTE | 2019-02-01 09:30 | NUR ---
PATIENT EXTUBATED PLACED ON COOL MIST MASK, NO STRIDOR OR DISTRESS NOTED AT THIS TIME
--- NOTE | 2019-02-01 09:30 | NUR ---
PT. EXTUBATED AND PLACE ON COOL AEROSOL AT 30% FIO2, SP02 96%,HR=90,RR=14, BP 110/78. BS. SLIGHT RHONCI, PT. HAS A GOOD COUGH WITH MODERATE SPUTUM, THICK PALE YELLOW IN COLOR, NO STRIDOR NOTED AT THIS TIME. CONTINUE TO MONITOR RESP. STATUS.
[2019-02-01] MEDS: D5W/SOD CHLO 0.9% 1,000 ML IV SCH (09:45)
--- NOTE | 2019-02-01 10:22 | NUR ---
DR. BIRD AT BEDSIDE
--- NOTE | 2019-02-01 10:22 | NUR ---
DR. COMER AT BEDSIDE
[2019-02-01] MEDS ORDERED: chlordiazePOXIDE HCL 5 MG CAP PO PRN (13:15)
--- NOTE | 2019-02-01 14:18 | NUR ---
SAWMILLING OPERATOR CHEN QUINTERO AWAITING CALLBACK
--- NOTE | 2019-02-01 14:55 | NUR ---
COMPLETE LINEN CHANGE PERFORMED AT THIS TIME
--- NOTE | 2019-02-01 17:43 | NUR ---
PATIENT TRANSPORTED TO ROOM 291B VIA ACLS GUIDELINES
--- NOTE | 2019-02-01 17:45 | NUR ---
FAMILY UPDATED THAT PATIENT HAS BEEN MOVED TO 291B
--- NOTE | 2019-02-01 19:20 | NUR ---
OPEN SHIFT RECEIVED REPORT ON FULL CODE ICU TRANSFER PATIENT FROM DAY SHIFT RN. PATIENT S/P EXTUBATION. CURRENTLY ON 2L O2 VIA NASAL CANULA. NSR 99'S. SBP 110. MATTA PATENT AND DRAINING CLEAR YELLOW URINE TO GRAVITY. RIGHT SUBCLAVIAN TLC CLEAN DRY AND INTACT. ALL FALL AND SAFETY PRECAUTIONS IN PLACE. SPECIALTY BED LOCKED AND IN LOWEST POSITION. CALL LIGHT WITHIN REACH. INSTRUCTED ON POC AND TO CALL FOR ASSIST PRN, PATIENT VERBALIZES UNDERSTANDING, WILL CONTINUE TO MONITOR FOR CHANGES Q1H AND PRN.
[2019-02-02] MEDS: ALBUTEROL SULF 2.5 MG/0.5ML(0.5%) NEB SOLN NEB SCH ×4 (00:40→19:11)
[2019-02-02] MEDS: IPRATROPIUM BROM 0.5 MG/2.5ML INH SOL NEB SCH ×4 (00:40→19:11)
[2019-02-02] MEDS: ACCU-CHEK COMFORT CURVE STRIP VI SCH ×3 (05:55→17:54)
[2019-02-02] MEDS: InsuLIN REG 1unit/0.01ml Soln (100units/ml) SC SCH ×3 (05:55→17:56)
[2019-02-02 06:36] VITALS: BP 116/64
[2019-02-02 06:50] LABS: White Blood Cell 4.7 10^3/uL (4.4-10.8)
[2019-02-02 06:55] LABS: Hematocrit 37.7 % (41.0-53.0); Mean Corpuscular Hemoglobin 36.4 pg (28.0-32.0); Mean Corpuscular Hgb Conc. 34.5 g/dL (32.0-36.0); Mean Corpuscular Volume 105.4 fL (80.0-100.0); Platelet Count (auto) 213 10^3/uL (140-450); Red Blood Cells 3.58 10^6/uL (4.5-5.90); Red Cell Distribution Width 18.6 % (11.8-14.3)
[2019-02-02 07:10] LABS: BUN/Creatinine Ratio 11.3; Calcium 7.9 mg/dL (8.5-10.1); Magnesium 1.2 mg/dL (1.6-2.6); Potassium 3.6 mmol/L (3.5-5.1)
[2019-02-02 07:24] LABS: Basophils % (manual) 0 (0.0-2.0); Blast Cells 0; Promyelocytes % 0
[2019-02-02 09:00] VITALS: BP 127/65
[2019-02-02 09:10] LABS: Band Neutrophils % (manual) 6
[2019-02-02 09:11] LABS: Eosinophils % (manual) 7 (0-7); Lymphocytes % (manual) 14 (10.0-50.0); Metamyelocytes % 1; Monocytes % (manual) 11 (0-12)
[2019-02-02 09:12] LABS: Myelocytes % 1; Reactive Lymphocytes 1
[2019-02-02] MEDS: cefTRIAXone 1GM/50ML D5W 50 ML IV SCH (09:50)
[2019-02-02] MEDS: FUROSEMIDE 20 MG/2 ML VIAL IV SCH ×2 (09:50→17:53)
[2019-02-02] MEDS: THIAMINE 100mg/ml INJ (200mg/2ml VIAL) IV SCH (09:51)
[2019-02-02] MEDS: ACETAMINOPHEN 325 MG TAB PO PRN (09:55)
[2019-02-02] MEDS: ENOXAPARIN SOD 40 MG/0.4 ML SYRINGE SC SCH (10:08)
[2019-02-02] MEDS: FAMOTIDINE (10MG/ML) 2ML VL IV SCH (10:21)
[2019-02-02] MEDS: D5W/SOD CHLO 0.9% 1,000 ML IV SCH (11:11)
--- NOTE | 2019-02-02 12:49 | NUR ---
Nutrition Follow-up Notes Wt.: 101.0 kg today. Pt's successfully extubated yesterday, on oxygen via nasal cannula, asleep, no immediate family member at bedside when rounded this morning. Pt's remains NPO, off from EN support, no diet order yet at this time, for swallow evalb by ST, per nursing. Est. Needs BW 90 [id number] kcal (23-25 kcal/kgBW), 90-108 gms pro (1.0-1.2 gms/kgBW r/t severe hypoalb). Will continue to monitor pertinent labs and reassess nutrient need prn Labs: BUN 6 L, Cr 0.53 L, Ca 7.9 L, Mg 1.2 L; Tot nagi 1.1 H, Dir nagi 1.1 H, Tpro 5.4 Alb 2.0 L. Skin: Raul scale 12, high risk, pt's right knee abrasion per optometrist president/practice owner. Pls refer to latest slaughterer religious ritual's notes for details. GI: Pt's no bowel activity since 01/25/19 per optometrist president/practice owner. PES: Partially resolved: Increased nutrient needs r/t acute/chronic medical condition aeb intubated sedated with order of NPO Altered nutrition related lab values r/t current/chronic medical condition aeb hyperglycemia, severe hypoalb, hypocalcemia Obesity r/t food intake more than body requirement aeb 146% IBW, BMI 34.5 kg/m2 and increased body adiposity Will continue to monitor NPO status, skin status, pertinent labs and weight trend. F/u in 2 to 3 days. Rec.: 1.) Advance gradually to oral diet (Consistent Standard Carb: 60 gms/meal, Cardiac: 2 gms Na, Low Chol, Low Fat diet - per ST's diet texture recommendation) when medically appropriate. 2.) If Albumin continues trending down, consider Prostat 1 pkt BID. 3.) Consider daily MVI with minerals and Asc acid 500 mgs BID prn. 4.) Refer pt to CDE/RD for further nutrition education and weight monitoring upon discharge. 5.) Continue current plan of care.
[2019-02-02 13:00] VITALS: BP 122/64
--- NOTE | 2019-02-02 13:25 | NUR ---
Received report from GERA Palma.
--- NOTE | 2019-02-02 13:26 | NUR ---
ENDORSED CARE TO GERA SULLIVAN
--- NOTE | 2019-02-02 14:45 | NUR ---
Dr. Hayes at bedside. ordered to follow up the Swallow Evaluation, ordered physical therapy.
--- NOTE | 2019-02-02 14:55 | NUR ---
Patient trying to get up from bed. Patient is very weak. Patient made aware he cannot get up from bed by himself, he could fall from bed. Patient has orders for physical therapy evaluation. Charge Nurse Baltazar made aware that patient may need a sitter if patient insisted getting up from bed without assist.
--- NOTE | 2019-02-02 15:15 | NUR ---
Dr. Hayes made aware patient has a Swallow Evaluation. Patient able to tolerate it. Therapist recommends Mechanical Soft diet. MD ordered Mechanical Soft diet. Patient provided with jello and juice.
--- NOTE | 2019-02-02 15:19 | NUR ---
SWALLOW EVALUATED. PATIENT HAS OWN TEETH UPPER AND LOWER. PATIENT ABLE TO FOLLOW DIRECTIONS. PATIENT ABLE TO TOLERATE MECHANICAL SOFT DIET TEXTURE WITH THIN LIQUIDS WITH NO OVERT SIGNS OR SYMPTOMS OF ASPIRATION. NURSING NOTIFIED.
--- NOTE | 2019-02-02 16:20 | NUR ---
Patient attempting to get up from bed again. IV dressing on the right subclavian removed by patient, tube intact. Charge Nurse Baltazar said patient will get a sitter.
--- NOTE | 2019-02-02 16:58 | NUR ---
GEOVANNA Mckenzie said the patient needs to go to a rehab when discharged, patient unable to make more than two steps when assisted to walk. Patient back to bed. Sitter at bedside.
[2019-02-02 17:00] VITALS: BP 128/72
--- NOTE | 2019-02-02 17:54 | NUR ---
WOUND CARE NOTE: Wound care in to see patient for skin integrity monitoring. Patient has been extubated and now in [facility]/telemetry unit. Patient is resting in bed in Rm. 291B. Patient is awake and able to verbalize needs. He continue resting on air bed. Patient remain wound free other than dry, light brown scabs knee small abrasions. No pressure injury noted. Patient's current Raul score is 17, able to assist in turning but unable to walk more than two steps per staff's reports. Patient tolerate skin examination, reposition for comfort. RN Gabriela at bedside. RECOMMENDATION: Continuation of all wound care orders prescribed by MD, continue with skin/wound preventative plan of care, continue monitoring by wound care while patient is hospitalized.
--- NOTE | 2019-02-02 18:10 | NUR ---
Patient attempting to get up from bed again. Sitter at bedside.
[2019-02-02 20:38] VITALS: BP 117/70
[2019-02-02] MEDS ORDERED: MORPHINE SULF 15mg ER tab PO ONE (21:00)
[2019-02-02] MEDS: MAGNESIUM OXIDE 400 MG TAB PO SCH (21:14)
--- NOTE | 2019-02-03 00:01 | NUR ---
RT NOTE PT SLEEPING AND THE AIDE ASKED NOT TO WAKE HIM UP SINCE HE IS CONFUSED. NO DISTRESS NOTED.
[2019-02-03 05:11] VITALS: BP 109/71
[2019-02-03 05:34] LABS: Red Blood Cells 3.71 10^6/uL (4.5-5.90); White Blood Cell 5.1 10^3/uL (4.4-10.8)
[2019-02-03 05:37] LABS: Basophils # (auto) 0.2 uL; Basophils % (auto) 4.3 % (0.0-2.0); Eosinophils # (auto) 0.2 uL; Hemoglobin 13.4 g/dL (13.5-17.5); Lymphocytes # (auto) 0.9 uL; Lymphocytes % (auto) 17.1 % (10.0-50.0); Mean Corpuscular Hemoglobin 36.2 pg (28.0-32.0); Mean Corpuscular Hgb Conc. 34.4 g/dL (32.0-36.0); Mean Corpuscular Volume 105.1 fL (80.0-100.0); Monocytes # (auto) 0.9 uL; Monocytes % (auto) 18.4 % (0.0-12.0); Neutrophils # (auto) 2.9 uL; Neutrophils % (auto) 56.2 % (37.0-80.0); Nucleated Red Blood Cells % 0.1 %; Platelet Count (auto) 226 10^3/uL (140-450); Red Cell Distribution Width 18.2 % (11.8-14.3)
[2019-02-03 05:50] LABS: Potassium 3.4 mmol/L (3.5-5.1)
[2019-02-03 05:57] LABS: BUN/Creatinine Ratio 9.4; Calcium 8.1 mg/dL (8.5-10.1)
[2019-02-03] MEDS: InsuLIN REG 1unit/0.01ml Soln (100units/ml) SC SCH ×4 (06:00→18:15)
[2019-02-03] MEDS: ACCU-CHEK COMFORT CURVE STRIP VI SCH ×4 (06:06→18:15)
[2019-02-03] MEDS: MORPHINE SULF 15mg ER tab PO SCH ×4 (06:06→22:30)
[2019-02-03] MEDS: IPRATROPIUM BROM 0.5 MG/2.5ML INH SOL NEB SCH ×4 (06:36→19:29)
[2019-02-03] MEDS: ALBUTEROL SULF 2.5 MG/0.5ML(0.5%) NEB SOLN NEB SCH ×4 (06:36→19:30)
[2019-02-03 09:00] VITALS: BP 85/49
[2019-02-03] MEDS: cefTRIAXone 1GM/50ML D5W 50 ML IV SCH (09:59)
[2019-02-03] MEDS: FUROSEMIDE 20 MG/2 ML VIAL IV SCH (10:00)
--- NOTE | 2019-02-03 10:00 | NUR ---
Anisa held due to B/P 85/49. Dr. Perkins informed.
[2019-02-03] MEDS: FAMOTIDINE (10MG/ML) 2ML VL IV SCH (10:59)
[2019-02-03] MEDS: THIAMINE 100mg/ml INJ (200mg/2ml VIAL) IV SCH (10:59)
[2019-02-03] MEDS: MAGNESIUM OXIDE 400 MG TAB PO SCH ×2 (11:01→22:00)
[2019-02-03] MEDS: ENOXAPARIN SOD 40 MG/0.4 ML SYRINGE SC SCH (11:01)
[2019-02-03] MEDS: HYDROcodone-ACET 5/325MG TAB PO PRN ×2 (12:00→18:00)
[2019-02-03 13:00] VITALS: BP 95/58
[2019-02-03 16:44] VITALS: BP 113/73
--- NOTE | 2019-02-03 18:00 | NUR ---
Pt exhibiting some periods of confusion. Pt refusing to wear vehicle monitor technician at this time. Sitter maintained throughout this shift for pt safety due to confusion, and unsteady gait.
[2019-02-03] MEDS ORDERED: MAGNESIUM SULFATE 1GM/100ML 100 ML IV ONE (19:00)
[2019-02-03] MEDS ORDERED: POTASSIUM CHL 20MEQ/100ML 100 ML IV ONE (19:00)
[2019-02-03] MEDS ORDERED: CALCIUM GLUC 4.65meq/50ml D5AE 50 ML IV ONE (19:45)
[2019-02-03 19:55] VITALS: BP 113/73
[2019-02-03 21:00] VITALS: BP 121/64
[2019-02-03] MEDS: TEMAZEPAM 15 MG CAP PO PRN (23:30)
[2019-02-04] MEDS: ALBUTEROL SULF 2.5 MG/0.5ML(0.5%) NEB SOLN NEB SCH ×4 (00:10→19:11)
[2019-02-04] MEDS: IPRATROPIUM BROM 0.5 MG/2.5ML INH SOL NEB SCH ×4 (00:10→19:11)
[2019-02-04] MEDS: InsuLIN REG 1unit/0.01ml Soln (100units/ml) SC SCH ×4 (06:00→17:27)
[2019-02-04] MEDS: ACCU-CHEK COMFORT CURVE STRIP VI SCH ×4 (06:00→17:27)
--- NOTE | 2019-02-04 06:56 | NUR ---
Labs drawn from central and sent to lab. Patient much more irritable this am. Seemed to have more forgetfulness last night as well.Sits up on side of bed often, still very weak and unable to ambulate and is a 2 person transfer.
[2019-02-04] MEDS: MORPHINE SULF 15mg ER tab PO SCH (07:00)
[2019-02-04 07:03] LABS: Hemoglobin 12.8 g/dL (13.5-17.5); Mean Corpuscular Hemoglobin 36.2 pg (28.0-32.0); Red Blood Cells 3.53 10^6/uL (4.5-5.90)
[2019-02-04 07:05] LABS: Mean Corpuscular Hgb Conc. 34.5 g/dL (32.0-36.0); Mean Corpuscular Volume 104.9 fL (80.0-100.0); Platelet Count (auto) 232 10^3/uL (140-450); Red Cell Distribution Width 17.7 % (11.8-14.3); White Blood Cell 4.7 10^3/uL (4.4-10.8)
[2019-02-04 07:47] LABS: BUN/Creatinine Ratio 11.9; Potassium 3.7 mmol/L (3.5-5.1)
[2019-02-04 07:48] LABS: Bilirubin, Total 0.8 mg/dL (0.2-1.0); Magnesium 1.3 mg/dL (1.6-2.6); Phosphorus 3.5 mg/dL (2.5-4.90); Total Protein 5.7 g/dL (6.4-8.2)
[2019-02-04 08:30] LABS: Basophils % (manual) 0 (0.0-2.0); Blast Cells 0; Eosinophils % (manual) 0 (0-7); Metamyelocytes % 0; Myelocytes % 0; Promyelocytes % 0; Reactive Lymphocytes 0
[2019-02-04] MEDS: cefTRIAXone 1GM/50ML D5W 50 ML IV SCH (09:27)
[2019-02-04 10:00] VITALS: BP 94/52
[2019-02-04] MEDS: ENOXAPARIN SOD 40 MG/0.4 ML SYRINGE SC SCH (10:56)
[2019-02-04] MEDS: FAMOTIDINE (10MG/ML) 2ML VL IV SCH (10:56)
[2019-02-04] MEDS: FUROSEMIDE 20 MG/2 ML VIAL IV SCH (10:57)
[2019-02-04] MEDS: THIAMINE 100mg/ml INJ (200mg/2ml VIAL) IV SCH (10:57)
[2019-02-04] MEDS: MAGNESIUM OXIDE 400 MG TAB PO SCH (10:57)
[2019-02-04] MEDS: HYDROcodone-ACET 5/325MG TAB PO PRN ×2 (10:58→17:14)
[2019-02-04 12:18] LABS: Band Neutrophils % (manual) 3; Lymphocytes % (manual) 16 (10.0-50.0); Monocytes % (manual) 17 (0-12)
[2019-02-04 13:00] VITALS: BP 100/61
[2019-02-04] MEDS ORDERED: MAGNESIUM SULFATE 1GM/100ML 100 ML IV ONE (16:00)
[2019-02-04 17:00] VITALS: BP 113/61
[2019-02-04 22:00] VITALS: BP 133/75
[2019-02-05] MEDS: IPRATROPIUM BROM 0.5 MG/2.5ML INH SOL NEB SCH ×4 (00:03→18:00)
[2019-02-05] MEDS: ALBUTEROL SULF 2.5 MG/0.5ML(0.5%) NEB SOLN NEB SCH ×4 (00:03→18:00)
[2019-02-05] MEDS: MAGNESIUM OXIDE 400 MG TAB PO SCH ×2 (00:40→09:30)
[2019-02-05] MEDS: ACCU-CHEK COMFORT CURVE STRIP VI SCH ×4 (01:15→18:00)
[2019-02-05] MEDS: HYDROcodone-ACET 5/325MG TAB PO PRN (01:16)
[2019-02-05] MEDS: TEMAZEPAM 15 MG CAP PO PRN (01:16)
[2019-02-05 05:00] VITALS: BP 108/72
[2019-02-05] MEDS: InsuLIN REG 1unit/0.01ml Soln (100units/ml) SC SCH ×4 (06:00→18:00)
[2019-02-05 07:19] LABS: Mean Corpuscular Hgb Conc. 34.3 g/dL (32.0-36.0)
[2019-02-05 07:22] LABS: Hematocrit 41.3 % (41.0-53.0); Hemoglobin 14.1 g/dL (13.5-17.5); Mean Corpuscular Volume 104.9 fL (80.0-100.0); Platelet Count (auto) 280 10^3/uL (140-450); Red Blood Cells 3.93 10^6/uL (4.5-5.90); Red Cell Distribution Width 18.5 % (11.8-14.3); White Blood Cell 4.9 10^3/uL (4.4-10.8)
[2019-02-05 07:25] LABS: Basophils % (manual) 0 (0.0-2.0); Blast Cells 0; Metamyelocytes % 0; Myelocytes % 0; Promyelocytes % 0; Reactive Lymphocytes 0
[2019-02-05 08:02] LABS: Band Neutrophils % (manual) 5; Eosinophils % (manual) 9 (0-7); Lymphocytes % (manual) 21 (10.0-50.0); Monocytes % (manual) 7 (0-12)
[2019-02-05 08:27] LABS: Albumin 2.6 g/dL (3.4-5.0); Calcium 8.8 mg/dL (8.5-10.1); Potassium 4.1 mmol/L (3.5-5.1)
[2019-02-05 08:31] LABS: BUN/Creatinine Ratio 10.8; Bilirubin, Total 0.8 mg/dL (0.2-1.0); Phosphorus 3.8 mg/dL (2.5-4.90)
[2019-02-05 08:42] VITALS: BP 96/57
[2019-02-05] MEDS: THIAMINE 100mg/ml INJ (200mg/2ml VIAL) IV SCH (09:26)
[2019-02-05] MEDS: FAMOTIDINE (10MG/ML) 2ML VL IV SCH (09:27)
[2019-02-05] MEDS: cefTRIAXone 1GM/50ML D5W 50 ML IV SCH (09:28)
[2019-02-05] MEDS: FUROSEMIDE 20 MG/2 ML VIAL IV SCH (09:29)
[2019-02-05] MEDS: ENOXAPARIN SOD 40 MG/0.4 ML SYRINGE SC SCH (09:31)
[2019-02-05] MEDS ORDERED: POTASSIUM CHL 20 Meq TABLET PO SCH (10:00)
[2019-02-05 13:11] VITALS: BP 102/63
--- NOTE | 2019-02-05 13:35 | NUR ---
Re-assessment Pt was alert and oriented at the time of re-assessment and had his family members in the room. SW followed up with the pt and family for pt's needs. Pt plans on going to a SNF placement for rehab and IV-medication. SW informed pt that CM was working on finding a placement for the pt. SW followed up on pt's interest in substance abuse resources and provided local resources for the pt. Pt stated that he has no further concerns or questions.
--- NOTE | 2019-02-05 15:00 | NUR ---
Nutrition Follow-up Notes Wt.: 101.0 kg today. Pt's on oxygen via nasal cannula, asleep, no immediate family member at bedside except for sitter during rounds this morning. Pt had swallow eval by ST, currently on Mechanical Soft diet with adequate PO intake aeb 95% ave. consumed meals (x7) in last 3 days. Est. Needs BW 90 [id number] kcal (23-25 kcal/kgBW), 90-108 gms pro (1.0-1.2 gms/kgBW r/t severe hypoalb). Will continue to monitor pertinent labs and reassess nutrient need prn Labs: Na 134 L, Cl 93 L, CO2 38 L, Cr 0.65 L, AST 68 H, ALT 154 H H, Alb 2.6 L. Skin: Raul scale 18, mod risk, pt's right knee abrasion per director of security. Pls refer to latest leases and land supervisor's notes for details. GI: Pt's no bowel activity since 01/25/19 per director of security. PES: Resolved: Increased nutrient needs r/t acute/chronic medical condition aeb intubated sedated with order of NPO Altered nutrition related lab values r/t current/chronic medical condition aeb hyperglycemia, severe hypoalb, hypocalcemia Obesity r/t food intake more than body requirement aeb 146% IBW, BMI 34.5 kg/m2 and increased body adiposity Will continue to monitor PO intake, skin status, pertinent labs and weight trend. F/u in 3 to 5 days. Rec.: 1.) Consider Mechanical Soft Cardiac: 2 gms Na, Low Chol, Low Fat diet. 2.) If Albumin continues trending down, consider Prostat 1 pkt BID. 3.) Consider daily MVI with minerals and Asc acid 500 mgs BID prn. 4.) Refer pt to CDE/RD for further nutrition education and weight monitoring upon discharge. 5.) Continue current plan of care.
--- NOTE | 2019-02-05 16:38 | NUR ---
D/C Planning Per consult for SNF placement for rehab. Information and choice letter was given to Pt at bedside. Pt had no preference of provider. Informed Pt referral will be sent to all three facilities. Pt verbalize understanding. Contact [facility], [facility] and [facility]. Per Garret Gutierrez Ph:) Fax:) Pt has been accepted to room b accepting MD Dr. Lyons. Transportation will be [facility] via wheelchair with oxygen between the hours 19:00-19:30. Informed GERA Hansen. Addendum: 02/05/19 at 1643 by KIMBERLY ROSALES Amended: Links added.
[2019-02-05 17:10] VITALS: BP 117/75
--- NOTE | 2019-02-05 18:00 | NUR ---
MATTA MATTA REMOVED. GAVE PATIENT URINAL. INSTRUCTED PATIENT TO INFORM STAFF WHEN HE URINATES
--- NOTE | 2019-02-05 18:40 | NUR ---
CENTRAL LINE CENTRAL LINE REMOVED. PRESSURE DRESSING APPLIED. PATIENT TOLERATED WELL.
--- NOTE | 2019-02-05 19:30 | NUR ---
Opening Shift Note Assumed care of patient, AOx3. No S/S of distress/SOB or pain. Fall and safety precautions in place. Call light within reach. Instructed on POC and to call for assist PRN, will continue to monitor for changes Q1hr and PRN.
--- NOTE | 2019-02-05 19:40 | NUR ---
IV insertion IV access obtained, via clean sterile technique by inserting 22 gauge catheter at Right FA after 1 attempt by GERA Brand. IV secured properly. No trauma to site. Patient tolerated well and education given on IV.
--- NOTE | 2019-02-05 19:48 | NUR ---
REPORT REPORT GIVEN TO GERA RUBI AT [facility]. ALL QUESTIONS/CONCERNS ANSWERED.
--- NOTE | 2019-02-05 21:00 | NUR ---
Discharge Discharge instructions given as ordered. Encourage to follow up with PMD as instructed. All questions and concerns addressed. Patient verbalized understanding. IV in place for transfer to acute care facility. Telemetry unit returned to ICU by day shift RN. Patient taken to vehicle via wheelchair with all personal belongings, accompanied by transport team. No distress noted at time of departure.
== END 2019-02-05 21:00 | DRG 870 ==
LOC: EDBD 16:25 → EDUNIT# 16:25 → ER 16:25 → TELE 16:26 → ICU WEST 01-27 08:40 → TELE-WESTW 02-01 17:50
PROVIDERS: ADMIT Internal Medicine; ATTEND Internal Medicine Nephrology
PROC: 02HV33Z Insertion of Infusion Device into Superior Vena Cava, Percutaneous Approach (ICD-10-PCS; 2019-01-25)
PROC: 5A1955Z Respiratory Ventilation, Greater than 96 Consecutive Hours (ICD-10-PCS; principal; 2019-01-26)
PROC: 0BH17EZ Insertion of Endotracheal Airway into Trachea, Via Natural or Artificial Opening (ICD-10-PCS; 2019-01-26)
PROC: 5A12012 Performance of Cardiac Output, Single, Manual (ICD-10-PCS; 2019-01-27)
PROC: B211YZZ Fluoroscopy of Multiple Coronary Arteries using Other Contrast (ICD-10-PCS; 2019-01-29)
DX: A41.9 Sepsis, unspecified organism (principal); J18.9 Pneumonia, unspecified organism; N17.0 Acute kidney failure with tubular necrosis; R65.21 Severe sepsis with septic shock; J96.21 Acute and chronic respiratory failure with hypoxia; I50.23 Acute on chronic systolic (congestive) heart failure; G93.41 Metabolic encephalopathy; G93.1 Anoxic brain damage, not elsewhere classified; N39.0 Urinary tract infection, site not specified; F10.231 Alcohol dependence with withdrawal delirium; I42.9 Cardiomyopathy, unspecified; J44.0 Chronic obstructive pulmonary disease with (acute) lower respiratory infection; Z16.29 Resistance to other single specified antibiotic; Z99.11 Dependence on respirator [ventilator] status; E83.42 Hypomagnesemia; E83.51 Hypocalcemia; E87.6 Hypokalemia; G89.29 Other chronic pain; E83.39 Other disorders of phosphorus metabolism; E87.5 Hyperkalemia; G40.401 Other generalized epilepsy and epileptic syndromes, not intractable, with status epilepticus; I48.91 Unspecified atrial fibrillation; B96.4 Proteus (mirabilis) (morganii) as the cause of diseases classified elsewhere; I11.0 Hypertensive heart disease with heart failure; E11.42 Type 2 diabetes mellitus with diabetic polyneuropathy; E88.09 Other disorders of plasma-protein metabolism, not elsewhere classified; Z86.74 Personal history of sudden cardiac arrest; Z87.891 Personal history of nicotine dependence
CPT/HCPCS: 36415; 36600; 51702; 70450; 71045; 80048; 80053; 80076; 80202; 80307; 80320; 81001; 82306; 82550; 82805; 82962; 83605; 83735; 83880; 83970; 84100; 84132; 84484; 85007; 85025; 85027; 85379; 85610; 85652; 85730; 87040; 87070; 87081; 87086; 87186; 87205; 92610; 92950; 93005; 93306; 93454; 93926; 94002; 94003; 94640; 94761; 95819; 97110; 97116; 97530; 99152; 99291; G0378; J0330; J0610; J0696; J1450; J1815; J1956; J2001; J2250; J2543; J2704; J3480; J3490; J7042; J7060

== ENCOUNTER 2019-05-07 09:07 | Emergency (ER) | payer MEDICARE ==
[~2019-05-07] VITALS: Ht 180.3 cm; Wt 83.9 kg
[2019-05-07] MEDS ORDERED: IPRATROPIUM BROM 0.5 MG/2.5ML INH SOL NEB ONE (09:30)
[2019-05-07] MEDS ORDERED: ALBUTEROL SULF 2.5 MG/0.5ML(0.5%) NEB SOLN NEB ONE (09:30)
[2019-05-07] MEDS ORDERED: methylPREDNISolone SOD SUCC 125 MG/2 ML VL IV ONE (09:45)
[2019-05-07 09:50] LABS: Basophils # (auto) 0.1 uL; Basophils % (auto) 1.2 % (0.0-2.0); Eosinophils # (auto) 0.1 uL; Eosinophils % (auto) 2.7 % (0.0-7.0); Hematocrit 46.1 % (41.0-53.0); Hemoglobin 15.7 g/dL (13.5-17.5); Lymphocytes # (auto) 1.1 uL; Lymphocytes % (auto) 20.6 % (10.0-50.0); Mean Corpuscular Hemoglobin 32.5 pg (28.0-32.0); Mean Corpuscular Hgb Conc. 34.1 g/dL (32.0-36.0); Mean Corpuscular Volume 95.4 fL (80.0-100.0); Monocytes # (auto) 0.4 uL; Monocytes % (auto) 7.7 % (0.0-12.0); Neutrophils # (auto) 3.8 uL; Neutrophils % (auto) 67.8 % (37.0-80.0); Nucleated Red Blood Cells % 0.2 %; Platelet Count (auto) 110 10^3/uL (140-450); Red Blood Cells 4.84 10^6/uL (4.5-5.90); Red Cell Distribution Width 16.5 % (11.8-14.3); White Blood Cell 5.6 10^3/uL (4.4-10.8)
[2019-05-07 10:08] LABS: Albumin 3.7 g/dL (3.4-5.0); Anion Gap 9 (5-15); Blood Urea Nitrogen 9 mg/dL (7-18); Carbon Dioxide 29 mmol/L (21-32); Chloride 101 mmol/L (98-107); Glucose 96 mg/dL (74-106); Magnesium 1.1 mg/dL (1.6-2.6); Potassium 3.8 mmol/L (3.5-5.1); Sodium 139 mmol/L (136-145)
[2019-05-07 10:10] LABS: Alanine Aminotransferase 21 U/L (16-61); Aspartate Aminotransferase 24 U/L (15-37); GFR African American 178 mL/min; GFR Non-African American 147 mL/min
[2019-05-07 10:15] LABS: Alkaline Phosphatase 55 U/L (45-117); Bilirubin, Total 0.4 mg/dL (0.2-1.0); Total Protein 7.5 g/dL (6.4-8.2)
[2019-05-07] MEDS ORDERED: FUROSEMIDE 20 MG/2 ML VIAL IV ONE (10:30)
[2019-05-07 11:00] VITALS: BP 173/87
[2019-05-07] MEDS ORDERED: NITROGLYCERIN 0.4 MG SL TAB SL ONE (11:45)
[2019-05-07] MEDS ORDERED: ASPirin 81 mg TAB PO ONE (11:45)
[2019-05-07 12:03] LABS: Urine Bacteria NONE SEEN /hpf (None Seen); Urine Blood Negative /uL (Negative); Urine Specific Gravity 1.011 (1.001-1.035); Urine WBC 3 /hpf (0 - 3)
== END 2019-05-07 12:48 | disposition left against medical advice (07) ==
LOC: EDBD 09:07 → ER 09:07
DX: I24.9 Acute ischemic heart disease, unspecified (principal); I11.0 Hypertensive heart disease with heart failure; I50.9 Heart failure, unspecified; J44.9 Chronic obstructive pulmonary disease, unspecified; Z87.891 Personal history of nicotine dependence; Z53.29 Procedure and treatment not carried out because of patient's decision for other reasons
CPT/HCPCS: 36415; 71046; 80053; 81001; 83735; 83880; 84484; 85025; 93005; 94640; 96374; 96375; 99291; J1940; J2930; J7611; J7644